=== PATIENT | female | born 1960 | race Caucasian/White ===

== ENCOUNTER 2020-02-28 13:50 | Outpatient (REF) | payer OTHER, SELFPAY ==
[2020-02-28 17:05] LABS: MANUAL DIFF FLAG NO
[2020-02-28 17:21] LABS: Basophils Absolute Auto 0.1 X10*3/uL (0.0-0.2); Basophils Percent Auto 0.6 % (0-2); Eosinophils Absolute Auto 0.1 X10*3/uL (0.0-0.4); Hematocrit 42.3 % (37-47); Hemoglobin 13.7 g/dl (12.0-16.0); Imm Gran Abs Auto 0.02 X10*3/uL (0.00-0.03); Imm Gran Pct Auto 0.2 % (0.0-0.4); Lymphocytes Absolute Auto 1.8 X10*3/uL (1.2-4.9); Lymphocytes Percent Auto 21.1 % (20-40); Mean Corpuscular HGB Conc 32.4 g/dl (31.0-35.0); Mean Corpuscular Hemoglobin 30.4 pg (27.0-33.0); Mean Corpuscular Volume 93.8 fL (80-98); Mean Platelet Volume 11.4 fL (9.4-12.3); Monocytes Absolute Auto 0.6 X10*3/uL (0.1-1.2); Monocytes Percent Auto 6.8 % (2-11); Neutrophils Absolute Auto 6.1 X10*3/uL (2.0-8.3); Neutrophils Percent Auto 70.3 % (45-73); Platelet Count 223 X10*3/uL (160-400); Red Blood Count 4.51 X10*6/uL (4.20-5.50); Red Cell Distribution Width 13.2 % (11.0-16.0); White Blood Count 8.7 X10*3/uL (4.8-10.8)
[2020-02-28 17:34] LABS: INTERNATIONAL NORM RATIO 0.9 (0.9-1.1); Prothrombin Time 11.2 SEC (10.8-13.0)
[2020-02-28 17:40] LABS: Alanine Aminotransferase 15 U/L (0-31); Aspartate Amino Transferase 24 U/L (5-31); Blood Urea Nitrogen 8 mg/dL (9-16); Estimated Glomerular Filt Rate > 60
== END 2020-02-28 13:51 | disposition home or self-care (01) ==
LOC: HO.HMGCLDS 13:50
PROVIDERS: PCP Internal Medicine; Visit Provider Internal Medicine Gastroenterology
DX: K74.3 Primary biliary cirrhosis (principal)
CPT/HCPCS: 36415; 82565; 84450; 84460; 84520; 85025; 85610

== ENCOUNTER → 2020-03-01 15:45 | Outpatient (BNVA) | payer OTHER, SELFPAY | PROVIDERS: PCP Internal Medicine; Referring Provider Internal Medicine; Visit Provider Internal Medicine Gastroenterology | DX: Z76.89 Persons encountering health services in other specified circumstances (principal) ==

== ENCOUNTER 2020-07-20 14:47 | Outpatient (REF) | payer OTHER, SELFPAY ==
[2020-07-20 16:16] LABS: MANUAL DIFF FLAG NO
[2020-07-20 16:25] LABS: Basophils Absolute Auto 0.1 X10*3/uL (0.0-0.2); Basophils Percent Auto 1.3 % (0-2); Eosinophils Absolute Auto 0.2 X10*3/uL (0.0-0.4); Eosinophils Percent Auto 3.8 % (0-4); Hematocrit 39.7 % (37-47); Hemoglobin 12.9 g/dl (12.0-16.0); Imm Gran Abs Auto 0.01 X10*3/uL (0.00-0.03); Imm Gran Pct Auto 0.2 % (0.0-0.4); Lymphocytes Absolute Auto 2.2 X10*3/uL (1.2-4.9); Lymphocytes Percent Auto 35.9 % (20-40); Mean Corpuscular HGB Conc 32.5 g/dl (31.0-35.0); Mean Corpuscular Hemoglobin 30.9 pg (27.0-33.0); Mean Platelet Volume 11.1 fL (9.4-12.3); Monocytes Absolute Auto 0.5 X10*3/uL (0.1-1.2); Monocytes Percent Auto 8.2 % (2-11); Neutrophils Percent Auto 50.6 % (45-73); Platelet Count 216 X10*3/uL (160-400); Red Blood Count 4.18 X10*6/uL (4.20-5.50); Red Cell Distribution Width 12.7 % (11.0-16.0)
[2020-07-20 16:55] LABS: Alanine Aminotransferase 11 U/L (0-31); Albumin Level 4.1 g/dL (3.5-5.0); Alkaline Phosphatase 164 U/L (39-117); Aspartate Amino Transferase 22 U/L (5-31); Bilirubin Direct 0.3 mg/dL (0.0-0.5); Bilirubin Total 0.7 mg/dL (0.0-1.0); C Reactive Protein 0.15 mg/dL (< or = 0.50); Gamma Glutamyl Transpeptidase 509 U/L (7-33); Total Protein 7.5 g/dL (6.5-8.0)
== END 2020-07-20 14:48 | disposition home or self-care (01) ==
LOC: HO.HMGCLDS 14:47
PROVIDERS: PCP Internal Medicine; Visit Provider Internal Medicine Gastroenterology
DX: K74.3 Primary biliary cirrhosis (principal)
CPT/HCPCS: 36415; 80076; 82977; 85025; 86140

== ENCOUNTER → 2020-07-23 14:44 | Outpatient (BNVA) | payer OTHER, SELFPAY | PROVIDERS: PCP Internal Medicine; Referring Provider Internal Medicine; Visit Provider Internal Medicine Gastroenterology ==

== ENCOUNTER 2020-11-13 10:34 | Outpatient (REF) | payer OTHER, SELFPAY ==
[2020-11-13 14:00] LABS: MANUAL DIFF FLAG NO
[2020-11-13 14:16] LABS: Basophils Percent Auto 0.6 % (0-2); Eosinophils Absolute Auto 0.1 X10*3/uL (0.0-0.4); Eosinophils Percent Auto 2.4 % (0-4); Hematocrit 37.6 % (37-47); Hemoglobin 12.1 g/dl (12.0-16.0); Imm Gran Abs Auto 0.01 X10*3/uL (0.00-0.03); Imm Gran Pct Auto 0.2 % (0.0-0.4); Lymphocytes Absolute Auto 1.8 X10*3/uL (1.2-4.9); Mean Corpuscular HGB Conc 32.2 g/dl (31.0-35.0); Mean Corpuscular Hemoglobin 31.4 pg (27.0-33.0); Mean Corpuscular Volume 97.7 fL (80-98); Mean Platelet Volume 11.2 fL (9.4-12.3); Monocytes Absolute Auto 0.4 X10*3/uL (0.1-1.2); Monocytes Percent Auto 7.5 % (2-11); Neutrophils Absolute Auto 2.7 X10*3/uL (2.0-8.3); Neutrophils Percent Auto 53.3 % (45-73); Platelet Count 200 X10*3/uL (160-400); Red Blood Count 3.85 X10*6/uL (4.20-5.50); Red Cell Distribution Width 13.2 % (11.0-16.0); White Blood Count 5.1 X10*3/uL (4.8-10.8)
[2020-11-13 14:20] LABS: INTERNATIONAL NORM RATIO 0.8 (0.9-1.1); Prothrombin Time 9.3 SEC (9.9-13.0)
[2020-11-13 14:52] LABS: Alanine Aminotransferase 14 U/L (0-31); Albumin Level 3.8 g/dL (3.5-5.0); Alkaline Phosphatase 166 U/L (39-117); Aspartate Amino Transferase 27 U/L (5-31); Bilirubin Direct 0.2 mg/dL (0.0-0.5); Bilirubin Total 0.6 mg/dL (0.0-1.0); Total Protein 6.9 g/dL (6.5-8.0)
[2020-11-13 15:07] LABS: Gamma Glutamyl Transpeptidase 468 U/L (7-33)
[2020-11-17 19:32] LABS: FIB-ALT 13 U/L (6-29); FIB-Alpha-2-Macroglobulin 139 mg/dL (106-279); FIB-Apolipoprotein A1 276 mg/dL (101-198); FIB-GGT 367 U/L (3-70); FIB-Haptoglobin 170 mg/dL (43-212); FIB-Total Bilirubin 0.4 mg/dL (0.2-1.2); Liver Fibrosis Score 0.06; Liver Fibrosis Stage F0; Nec Inflam Act Grade A0; Nec Inflam Act Score 0.03
== END 2020-11-13 10:35 | disposition home or self-care (01) ==
LOC: HO.HMGCLDS 10:34
PROVIDERS: PCP Internal Medicine; Visit Provider Internal Medicine Gastroenterology
DX: K74.3 Primary biliary cirrhosis (principal)
CPT/HCPCS: 36415; 80076; 81596; 82977; 85025; 85610

== ENCOUNTER 2021-10-22 14:19 | Outpatient (REF) | payer OTHER, SELFPAY ==
[2021-10-22 16:30] LABS: MANUAL DIFF FLAG NO
[2021-10-22 16:34] LABS: Basophils Absolute Auto 0.1 X10*3/uL (0.0-0.2); Basophils Percent Auto 0.9 % (0-2); Eosinophils Absolute Auto 0.3 X10*3/uL (0.0-0.4); Eosinophils Percent Auto 5.1 % (0-4); Hematocrit 42.1 % (37.0-47.0); Hemoglobin 13.4 g/dl (12.0-16.0); Imm Gran Abs Auto 0.01 X10*3/uL (0.00-0.03); Imm Gran Pct Auto 0.2 % (0.0-0.4); Lymphocytes Absolute Auto 2.5 X10*3/uL (1.2-4.9); Lymphocytes Percent Auto 39.1 % (20-40); Mean Corpuscular HGB Conc 31.8 g/dl (31.0-35.0); Mean Corpuscular Hemoglobin 30.5 pg (27.0-33.0); Mean Corpuscular Volume 95.9 fL (80.0-98.0); Mean Platelet Volume 11.3 fL (9.4-12.3); Monocytes Absolute Auto 0.6 X10*3/uL (0.1-1.2); Monocytes Percent Auto 8.7 % (2-11); Neutrophils Absolute Auto 2.9 x10*3/uL (2.0-8.3); Platelet Count 244 X10*3/uL (160-400); Red Blood Count 4.39 X10*6/uL (4.20-5.50); Red Cell Distribution Width 12.4 % (11.0-16.0); White Blood Count 6.3 X10*3/uL (4.8-10.8)
[2021-10-22 16:39] LABS: Prothrombin Time 11.6 SEC (9.9-13.0)
[2021-10-22 16:46] LABS: Alanine Aminotransferase 17 U/L (0-31); Albumin Level 4.1 g/dL (3.5-5.0); Alkaline Phosphatase 183 U/L (39-117); Aspartate Amino Transferase 23 U/L (5-31); Bilirubin Direct 0.2 mg/dL (0.0-0.5); Bilirubin Total 0.5 mg/dL (0.0-1.0); Gamma Glutamyl Transpeptidase 527 U/L (7-33); Total Protein 7.3 g/dL (6.5-8.0)
[2021-10-25 15:33] LABS: Anti Nuclear Antibody Screen POSITIVE (NEGATIVE)
== END 2021-10-22 14:20 | disposition home or self-care (01) ==
LOC: HO.HMGCLDS 14:19
PROVIDERS: PCP Internal Medicine; Visit Provider Internal Medicine Gastroenterology
DX: K74.3 Primary biliary cirrhosis (principal)
CPT/HCPCS: 36415; 80076; 82977; 85025; 85610; 86038; 86039

== ENCOUNTER 2021-12-02 11:03 | Outpatient (REF) | payer OTHER, SELFPAY ==
--- NOTE | ~2021-12-02 | US_ITS ---
EXAMINATION: US ABDOMEN COMPLETE CLINICAL INFORMATION: Primary biliary cirrhosis. COMPARISON: Ultrasound abdomen 02/14/2019 and 02/25/2012. CT abdomen and pelvis 01/14/2018. X-ray abdomen KUB 11/26/2017. TECHNIQUE: Real-time imaging of the abdominal viscera. FINDINGS: PANCREAS: Normal. ABDOMINAL AORTA: There are mild atherosclerotic changes of the abdominal aorta. INFERIOR VENA CAVA: Visualized portions are normal. LIVER: The liver is normal in size. The liver contour is normal. Parenchymal texture is coarse and echogenic. No focal hepatic lesion. There is no intrahepatic biliary duct dilatation seen. The portal veins are prominent with normal hepatopedal flow in the main portal vein. GALLBLADDER: There is a nonmobile echogenic 0.18 cm polyp. The gallbladder is physiologically distended without evidence of stones, sludge, wall thickening or pericholecystic fluid. COMMON BILE DUCT: Normal in caliber measuring 0.2 cm in diameter. RIGHT KIDNEY: Normal. No hydronephrosis. No renal calculi or focal parenchymal lesions. The kidney measures 10.3 cm in maximum dimension. LEFT KIDNEY: Normal. No hydronephrosis. No renal calculi or focal parenchymal lesions. The kidney measures 9.9 cm in maximum dimension. SPLEEN: Normal. The spleen measures 8.9 cm in maximum dimension. FREE FLUID: None. US/US abdomen complete IMPRESSION: Coarse echogenic liver without focal lesion. Small gallbladder polyp with no wall thickening or echogenic stones. Mild atherosclerotic changes of abdominal aorta.
== END 2021-12-02 11:04 | disposition home or self-care (01) ==
LOC: HO.HMGCX 11:03
PROVIDERS: Visit Provider Internal Medicine Gastroenterology
DX: K74.3 Primary biliary cirrhosis (principal)
CPT/HCPCS: 76700

== ENCOUNTER 2021-12-30 13:29 | Outpatient (REF) | payer OTHER, SELFPAY ==
--- NOTE | ~2021-12-30 | MM_ITS ---
EXAMINATION: MM SCREENING DIGITAL BREAST TOMOSYNTHESIS, BILATERAL CLINICAL INFORMATION: Screening. Asymptomatic. The lifetime risk of breast cancer based on the Tyrer-Cuzick Model is 7%. COMPARISON: Mammography: November 18, 2013 and studies dating back to December 07, 2007 TECHNIQUE: Digital breast tomosynthesis is performed in both the craniocaudal and mediolateral oblique views along with computer-aided detection (CAD). Synthesized 2D images are generated from the tomosynthesis. FINDINGS: There are scattered areas of fibroglandular density (ACR BI-RADS breast composition Category b). There are no significant masses, abnormal calcifications, or other abnormalities. MM/MM tomosynthesis screening BI IMPRESSION: No mammographic evidence of malignancy. ASSESSMENT: BI-RADS 1: Negative RECOMMENDATION: Routine annual mammography screening. This patient's information was entered into a reminder system with a target due date for their next mammogram.
== END 2021-12-30 13:30 | disposition home or self-care (01) ==
LOC: HO.MAMMO 13:29
PROVIDERS: PCP Internal Medicine; Visit Provider Internal Medicine
DX: Z12.31 Encounter for screening mammogram for malignant neoplasm of breast (principal)
CPT/HCPCS: 77063; 77067

== ENCOUNTER 2022-01-27 10:10 | Outpatient (REF) | payer OTHER, SELFPAY ==
[2022-01-27 12:55] LABS: HBsAGNum1 0.38 S/CO (0.00-0.99); Hepatitis B Surface Antigen Negative (Negative)
[2022-01-27 13:01] LABS: Alanine Aminotransferase 12 U/L (0-31); Albumin Level 3.8 g/dL (3.5-5.0); Alkaline Phosphatase 161 U/L (39-117); Aspartate Amino Transferase 20 U/L (5-31); Bilirubin Direct 0.2 mg/dL (0.0-0.5); Bilirubin Total 0.3 mg/dL (0.0-1.0); Total Protein 6.9 g/dL (6.5-8.0)
[2022-01-27 13:21] LABS: Vitamin D 25-OH Total 44.6 ng/mL (>30)
[2022-01-30 17:52] LABS: Vitamin A 85 mcg/dL (38-98)
== END 2022-01-27 10:11 | disposition home or self-care (01) ==
LOC: HO.HMGCLDS 10:10
PROVIDERS: PCP Internal Medicine; Visit Provider Internal Medicine Gastroenterology
DX: K74.3 Primary biliary cirrhosis (principal)
CPT/HCPCS: 36415; 80076; 82306; 84590; 87340

== ENCOUNTER 2022-06-12 14:00 | Outpatient (REF) | payer OTHER, SELFPAY ==
[2022-06-12 16:34] LABS: Hematocrit 42.8 % (37.0-47.0); Hemoglobin 13.9 g/dl (12.0-16.0); Mean Corpuscular HGB Conc 32.5 g/dl (31.0-35.0); Mean Corpuscular Hemoglobin 30.8 pg (27.0-33.0); Mean Corpuscular Volume 94.9 fL (80.0-98.0); Mean Platelet Volume 10.8 fL (9.4-12.3); Platelet Count 244 X10*3/uL (160-400); Red Blood Count 4.51 X10*6/uL (4.20-5.50); Red Cell Distribution Width 12.7 % (11.0-16.0); White Blood Count 6.1 X10*3/uL (4.8-10.8)
[2022-06-12 16:40] LABS: INTERNATIONAL NORM RATIO 0.9 (0.9-1.1); Prothrombin Time 10.3 SEC (10.0-13.1)
[2022-06-12 17:04] LABS: Alanine Aminotransferase 13 U/L (0-31); Alkaline Phosphatase 156 U/L (39-117); Anion Gap 11 (12-20); Aspartate Amino Transferase 22 U/L (5-31); Bilirubin Total 0.9 mg/dL (0.0-1.0); Blood Urea Nitrogen 11 mg/dL (9-16); C Reactive Protein 0.36 mg/dL (< or = 0.50); Calcium 9.2 mg/dL (8.4-10.2); Carbon Dioxide 29 mmol/L (22-29); Chloride 106 mmol/L (96-108); Cholesterol 244 mg/dL; Estimated Glomerular Filt Rate > 60; Gamma Glutamyl Transpeptidase 382 U/L (7-33); Glucose Random 81 mg/dL (60-115); HDL Cholesterol 85 mg/dL; LDL Cholesterol Calculated 135 mg/dl; Potassium 4.1 mmol/L (3.3-5.1); Sodium 142 mmol/L (135-145); Total Protein 7.1 g/dL (6.5-8.0); Triglycerides 123 mg/dL
[2022-06-12 17:34] LABS: Folate 15.9 ng/mL (> or = 4.0); TSH reflex Free T4 3.29 uIU/mL (0.32-4.0); Vitamin B12 177 pg/mL (200-900)
[2022-06-12 17:44] LABS: Reflex LDLD? No
== END 2022-06-12 14:01 | disposition home or self-care (01) ==
LOC: HO.HMGCLDS 14:00
PROVIDERS: PCP Internal Medicine; Visit Provider Internal Medicine Gastroenterology
DX: K74.3 Primary biliary cirrhosis (principal)
CPT/HCPCS: 36415; 80053; 80061; 82607; 82746; 82977; 84443; 85027; 85610; 86140

== ENCOUNTER 2022-12-26 13:24 | Outpatient (REF) | payer OTHER, SELFPAY ==
[2022-12-26 16:18] LABS: Hematocrit 41.3 % (37.0-47.0); Hemoglobin 13.3 g/dl (12.0-16.0); Mean Corpuscular HGB Conc 32.2 g/dl (31.0-35.0); Mean Corpuscular Hemoglobin 30.8 pg (27.0-33.0); Mean Corpuscular Volume 95.6 fL (80.0-98.0); Mean Platelet Volume 11.4 fL (9.4-12.3); Platelet Count 239 X10*3/uL (160-400); Red Blood Count 4.32 X10*6/uL (4.20-5.50); Red Cell Distribution Width 13.1 % (11.0-16.0); White Blood Count 6.2 X10*3/uL (4.8-10.8)
[2022-12-26 17:02] LABS: Alanine Aminotransferase 12 U/L (0-31); Alkaline Phosphatase 153 U/L (39-117); Aspartate Amino Transferase 24 U/L (5-31); Bilirubin Direct 0.3 mg/dL (0.0-0.5); Bilirubin Total 0.6 mg/dL (0.0-1.0); Total Protein 7.6 g/dL (6.5-8.0)
[2022-12-26 17:18] LABS: Gamma Glutamyl Transpeptidase 503 U/L (7-33)
== END 2022-12-26 13:25 | disposition home or self-care (01) ==
LOC: HO.HMGCLDS 13:24
PROVIDERS: Visit Provider Internal Medicine Gastroenterology
DX: K74.3 Primary biliary cirrhosis (principal)
CPT/HCPCS: 36415; 80076; 82977; 85027

== ENCOUNTER 2023-01-08 10:57 | Outpatient (AMB) | payer OTHER, SELFPAY ==
--- NOTE | 2023-01-08 11:00 | MHC.OFFVIS ---
Intake Vital Signs 01/08/23 11:03 Height 5 ft 3 in Weight 101 lb BMI 17.9 BP 149/92 H Blood Pressure Location Lt brachial Position Sitting Pulse 87 Intake Visit Reasons: Labs Intake Note: Patient follow up for chronic constipation lab results. Patient cc: abdominal pain/bloating come and go, and between diarrhea and constipation. Denies any other GI issues. Event Coordinator Required: No Accompanied by: Self / Same As Patient Allergies Iodinated Contrast Media [IV CONTRAST] Allergy (Mild, Verified 01/08/23 10:59) HIVES Medication List - Last Reconciled 01/08/23 by Lizabeth Molina MD bisacodyl (Dulcolax (bisacodyl)) 10 mg (2 x 5 mg) PO ONCE 2 days calcium carbonate-vitamin D3 500 mg-5 mcg (200 unit) (Oysco 500/D) 1 tab PO DAILY 90 days docusate sodium (DOK) 100 mg PO DAILY PRN 30 days famotidine 20 mg PO BEDTIME 90 days ibuprofen (Advil) 200 mg PO Q6H PRN multivitamin 1 tab PO DAILY obeticholic acid (Ocaliva) 5 mg PO DAILY 30 days polyethylene glycol 3350 (Miralax) 17 grams PO DAILY 1 day ursodiol 375 mg (1.5 x 250 mg) PO BID HPI Labs HPI Details GI Clinic visit for this 62-year-old female for FU of? primary biliary cholangitis (PBC), GERD and constipation. ?? Pt was diagnosed with PBC in 07/[address] Whitlock: ? The most outstanding abnormalities that persist are an Alkaline Phosphatase of 563 with a GGTP of 1338. AST/ALT: 38/31. The Antimitochondrial Antibody is elevated to 1:320. The Antismooth Antibody is elevated at 89. These results are highly suggestive of PRIMARY BILIARY CIRRHOSIS, patient is in the correct age range, etc. for this diagnosis. I tried to explain to her that this is an autoimmune disorder in which the patient's own system starts attacking the bile ductules. Alcohol, although it doesn't cause the problem, escalates any damage/ inflamatory reaction that is ongoing. This does mean she has to stop drinking. The diagnosis is best made with a liver biopsy which we will set up . ? 07/2012 Liver Biopsy showed: ? LIVER, CORE NEEDLE BIOPSY: INFLAMMATORY PROCESS WITH FEATURES CONSISTENT WITH PRIMARY BILIARY CIRRHOSIS (PBC). ?CHRONIC ILLNESSES:?GERD, IBS, PRIMARY BILIARY CIRRHOSIS (Dx'd 07/21), LBx 07/2012 Stage 1-2/ 4. Mild portal fibrosis present, Smoker 1 ppd > 30 yrs (no lung imaging on file), Underweight,? ? ? Unintentional wt loss, H/O ETOH abuse, diverticulosis (05/23), Primary biliary cirrhosis ?LABS IN [place]: Reviewed. 10/12/19 normal CBC with platelet count 197, decreased in AP to 164 (from 206) with normal remaining LFTs (increased from 199 in 06/29). ? Hepatitis a serologies showed immunity to hepatitis A and lack of immunity to hepatitis-B. ? Normal CBC with plt count of 229. 04/27 AMA POSITIVE WITH A TITRE OF 1:320. ASMA POSITIVE AT 49 ? IMAGING STUDIES:? 12/02/21 ABD US SHOWED: Coarse echogenic liver without focal lesion. ?Small gallbladder polyp with no wall thickening or echogenic stones. ?Mild atherosclerotic changes of abdominal aorta. ?02/14/19 ABDOMINAL ULTRASOUND SHOWED: ? There is generalized increase in hepatic echotexture, consistent with ? fatty infiltration or hepatocellular disease. Please correlate ? clinically. No focal hepatic mass or intrahepatic biliary dilatation is seen. ?02/11/19 bone density study showed: ? IMPRESSION: ? 1. DIAGNOSIS: Osteoporosis based on the lowest T-score value of -4.9 ? in the lumbar spine applying World Health Organization criteria. ? 2. 10-YEAR FRACTURE RISK PREDICTION, FRAX: Major osteoporotic fracture ? (clinical spine, forearm, hip or shoulder) 28.1%. Hip fracture 20.3%. ENDOSCOPIC STUDIES: May, 2012 colonoscopy was performed by Dr. Whitlock and showed left-sided diverticulosis and no polyps . ?TODAY'S VISIT in Sep, 2022 at [facility] from complications of ETOH related cirrhosis. Remodeling her 2 family house (given to them by her brother in law for free). Has a daughter and a son. Applying for [employer] and cancelling her [facility] insurance. Had to cancel her colonoscopy appt and would like to reschedule at the time of her next appt Has constipation alternating with diarrhea - has multiple loose BMs throughout the day and never feels empty Feels bloated and gasy on some days. Advised to take Senna 1-2 times a week. Pt has had surgeries x 4 for complications associated with diverticulitis with abscess PAST VISIT: Advised to continue Patricia and Doing Ok.? Notes? intermittent heartburn - associated with certain foods Takes Angela prn for constipation Cheese can make her constipated. Continues to drink - takes 1-2 shots with ice cubes 2-3 times a week (sips on it). ? Lab and US results reviewed - showed a decrease in AP from the past. ? Drinking alcohol (peppermint kelsy) three times a day and finds it relaxing. ? Stopped drinking ETOH and heartburn has improved - taking famotidine once a day. ? Abdomen is still sensitive from past surgeries and tender in some places. ? Notes intermittent sharp pains in her abdomen lasting for few seconds since her abdominal surgeries ? associated with bending and moving. 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 ? Cant make it through the day without taking a nap. ? Has fatigue and anxiety all the time. ? Denies change in appetite or weight - weight is back to base line. ? BM are regular. ? Gets a little constipated once in a while and took colace in the past. ? Has had 3 colonoscopies in the past since age 51 -last colonoscopy was in May, 2012 and showed left-sided diverticulos [facility] Medical History (Updated 01/08/23 @ 11:26 by Lizabeth Molina MD) Osteoporosis Osteoporosis without pathological fracture Chronic constipation Tobacco use History of ETOH abuse Diverticulosis Primary biliary cholangitis Surgical History History of colectomy History of liver biopsy Hx of colonoscopy (~07/2012) Hx of hand surgery Family History Father Anxiety Mother Diabetes mellitus Sister Breast cancer Social History Household Members: Spouse Housing: House Alcohol intake: current Alcohol intake frequency: a few times a week Alcohol type: hard liquor Patient Tobacco Use Status: Current everyday Tobacco user Cigarettes Per Day: 10 e-Cigarette/Vaping Use: Never Used Substance Use Type: Marijuana Current occupational status: employed Current occupation: [employer] Cognitive needs: No Hearing needs: No Vision needs: No Review of Systems Const All systems reviewed & are unremarkable except as noted in HPI and below Physical Exam Vital Signs: Last Vital Signs Pulse 87 01/08/23 11:03 BP 149/92 H 01/08/23 11:03 BMI result Body Mass Index 17.9 Const General: healthy appearing and no acute distress Nutritional Appearance: underweight Orientation/consciousness: patient oriented x3 Limitations: no limitations HEENT Head: Yes normal to inspection Ears: hearing grossly normal bilaterally Eyes Sclerae: sclerae normal Pupils: Equal, round and reactive pupils present Neck Neck: Yes normal visual inspection Chest Chest palpation & inspection: normal inspection of the chest Resp Effort & Inspection: normal respiratory effort Auscultation: clear to auscultation bilaterally Cardio Palpation: normal PMI Rate: regular rate Rhythm: regular rhythm Heart sounds: S1 normal heart sound present, S2 normal heart sound present and no murmurs GI Inspection: Yes scar (midline scare of past abdominal surgeries) Palpation (GI): Soft to palpation, nontender and No hepatosplenomegaly present Auscultation: normal bowel sounds Rectal Exam - Female: deferred Skin General skin exam: no rashes or lesions noted Neuro General: patient oriented x3, gait normal and moves all extremities Cranial nerves: Yes Equal, round and reactive pupils present Psych Appearance: grossly normal Mental Status: mental status grossly normal Assessment & Plan Assessment & Plan (1) Colon cancer screening: Comment: had 3 colonoscopies in the past since age 51 -last colonoscopy was in 2018. 10/26 patient had an incomplete colonoscopy to the hepatic flexure by Dr. Syed prior to ileostomy takedown. Pt will be scheduled for FU colonoscopy in 2022. Code(s): Z12.11 - Encounter for screening for malignant neoplasm of colon (2) Chronic constipation: Code(s): K59.09 - Other constipation (3) Primary biliary cholangitis: Comment: primary biliary cholangitis (Dx'd 07/21), LBx 07/2012 Stage 1-2/ 4. Mild portal fibrosis present, Continue Ursodiol 250 mg 1.5 tablets twice daily 10/2021 Obeticholic acid (Ocaliva) 5 mg daily added due to elevated AP and GGT Code(s): K74.3 - Primary biliary cirrhosis (4) History of ETOH abuse: Code(s): F10.11 - Alcohol abuse, in remission (5) Gallbladder polyp: Code(s): K82.4 - Cholesterolosis of gallbladder Plan 62 YF with GERD, IBS,? primary biliary cholangitis (Dx'd 07/21), LBx 07/2012 Stage 1-2/ 4. Mild portal fibrosis present, Smoker 1 ppd > 30 yrs, Underweight, Unintentional wt loss , H/O ETOH abuse, diverticulosis (05/23) seen for follow-up of PBC. Labs revealed improvement in LFTs - transaminases are normal and AP and GGT are stable. 04/2018 Liver Fibrosis score of 0,10 and Liver Fibrosis Stage of F0. Increase in LFTs (GGT and AP likely due to ongoing ETOH use). Bone density study showed osteoporosis - patient was referred to Dr. Ericka Eng (her PCP) for management and is taking Ca + Vitamin D daily. Pt was advised to quit drinking with improvement in AP to 164 and decrease in GGT to 333 (from 569) She notes improvement and heartburn is taking famotidine once daily. Patient was advised to abstain completely from EtOH except for occasional intake of wine on social occasions and continues to drink 2 shots 2-3 times a week and will try to cut back 10/2021 Due to worsening GGT and AP, Obeticholic acid 5 mg daily was added for PBC. Repeat labs in 3 months.? If LFTs do not improve in 3 months, dose of Obeticholic acid will be increased to 10 mg daily 01/08/23 PI due for Colon appt in spring Had to cancel her colonoscopy appt and would like to reschedule at the time of her next appt Has constipation alternating with diarrhea - has multiple loose BMs throughout the day and never feels empty Feels bloated and gassy on some days. Advised to take Senna 1-2 times a week. FU appt in 6 months. Orders: Orders US abdomen limited 01/08/23 K74.3 - Primary biliary cirrhosis, K82.4 - Cholesterolosis of gallbladder Medications: New mecobalamin (vitamin B12) place tablet under tongue and allow to dissolve for at least30 secs before swallowing 1,000 mcg sublingual DAILY 90 tabs 0RF 90 days sennosides-docusate sodium 8.6-50 mg (Senna Plus) 1 tab-cap PO .twice a week 60 caps 1RF 60 days K59.09 - Other constipation Coding Level of Care Code Est Pt Level 4 (46189) Diagnoses Colon cancer screening Z12.11 Chronic constipation K59.09 Primary biliary cholangitis K74.3 History of ETOH abuse F10.11 Gallbladder polyp K82.4 Time Spent (min) 22
[2023-01-08 11:03] VITALS: BP 149/92; PULSE 87; BMI 17.9
== END 2023-01-08 11:56 | disposition home or self-care (01) ==
PROVIDERS: PCP Internal Medicine; Visit Provider Internal Medicine Gastroenterology
DX: Z12.11 Encounter for screening for malignant neoplasm of colon (principal); K59.09 Other constipation; K74.3 Primary biliary cirrhosis; F10.11 Alcohol abuse, in remission; K82.4 Cholesterolosis of gallbladder; Z01.818 Encounter for other preprocedural examination
CPT/HCPCS: 99214

== ENCOUNTER → 2023-01-08 10:57 | Outpatient (BNVA) | payer OTHER, SELFPAY | PROVIDERS: PCP Internal Medicine; Visit Provider Internal Medicine Gastroenterology ==

== ENCOUNTER 2023-07-01 10:29 | Outpatient (REF) | payer MEDICAID, SELFPAY ==
--- NOTE | ~2023-07-01 | US_ITS ---
EXAMINATION: US ABDOMEN LIMITED CLINICAL INFORMATION: Primary biliary cirrhosis. Followup of gallbladder polyp. COMPARISON: Ultrasound abdomen complete 12/02/2021 and 02/14/2019. X-ray abdomen KUB 11/26/2017 and 07/23/2017. CT abdomen and pelvis without contrast 01/14/2018. TECHNIQUE: Real-time imaging of the right upper quadrant abdominal viscera. FINDINGS: PANCREAS: Normal. LIVER: The liver is normal in size. The liver contour is normal. There is coarse, increased liver parenchymal echogenicity. No focal hepatic lesion. There is no intrahepatic biliary duct dilatation seen. GALLBLADDER: A 1 mm nonmobile polyp is seen. The gallbladder is mildly contracted, without without evidence of stones, sludge, wall thickening or pericholecystic fluid. COMMON BILE DUCT: Normal in caliber measuring 0.3 cm in diameter. RIGHT KIDNEY: Normal. No hydronephrosis. No renal calculi or focal parenchymal lesions. The kidney measures 9.9 cm in maximum dimension. FREE FLUID: None. US/US abdomen limited IMPRESSION: 1. There is coarse, increased hepatic echotexture, consistent with fatty infiltration or hepatocellular disease. Please correlate clinically. No focal hepatic mass or intrahepatic biliary dilatation is seen. 2. A 1 mm nonmobile gallbladder polyp is seen.
[2023-07-01 13:19] LABS: MANUAL DIFF FLAG NO
[2023-07-01 13:35] LABS: Basophils Percent Auto 0.7 % (0-2); Eosinophils Absolute Auto 0.3 X10*3/uL (0.0-0.4); Eosinophils Percent Auto 4.6 % (0-4); Hematocrit 45.1 % (37.0-47.0); Hemoglobin 14.4 g/dl (12.0-16.0); Imm Gran Abs Auto 0.01 X10*3/uL (0.00-0.03); Imm Gran Pct Auto 0.2 % (0.0-0.4); Lymphocytes Absolute Auto 2.2 X10*3/uL (1.2-4.9); Lymphocytes Percent Auto 38.8 % (20-40); Mean Corpuscular HGB Conc 31.9 g/dl (31.0-35.0); Mean Corpuscular Hemoglobin 30.8 pg (27.0-33.0); Mean Corpuscular Volume 96.6 fL (80.0-98.0); Mean Platelet Volume 11.3 fL (9.4-12.3); Monocytes Absolute Auto 0.4 X10*3/uL (0.1-1.2); Monocytes Percent Auto 6.7 % (2-11); Neutrophils Absolute Auto 2.8 x10*3/uL (2.0-8.3); Platelet Count 226 X10*3/uL (160-400); Red Blood Count 4.67 X10*6/uL (4.20-5.50); Red Cell Distribution Width 12.8 % (11.0-16.0); White Blood Count 5.7 X10*3/uL (4.8-10.8)
[2023-07-01 13:41] LABS: INTERNATIONAL NORM RATIO 0.8 (0.9-1.1); Prothrombin Time 9.5 SEC (11.1-13.3)
[2023-07-01 14:11] LABS: Alanine Aminotransferase 16 U/L (0-31); Albumin Level 3.9 g/dL (3.5-5.0); Alkaline Phosphatase 173 U/L (39-117); Aspartate Amino Transferase 27 U/L (5-31); Bilirubin Direct 0.2 mg/dL (0.0-0.5); Bilirubin Total 0.3 mg/dL (0.0-1.0); Total Protein 7.3 g/dL (6.5-8.0)
[2023-07-01 14:12] LABS: Vitamin B12 222 pg/mL (200-900)
[2023-07-01 14:20] LABS: TSH reflex Free T4 5.77 uIU/mL (0.32-4.0); Vitamin D 25-OH Total 47.5 ng/mL (>30)
[2023-07-01 15:52] LABS: Free T4 (Free Thyroxine) 0.85 ng/dL (0.71-1.85)
[2023-07-04 06:28] LABS: Vitamin A 68 mcg/dL (38-98)
== END 2023-07-01 10:30 | disposition home or self-care (01) ==
LOC: HO.HMGCX 10:29
PROVIDERS: PCP Internal Medicine; Visit Provider Internal Medicine Gastroenterology
DX: K74.3 Primary biliary cirrhosis (principal); K82.4 Cholesterolosis of gallbladder
CPT/HCPCS: 36415; 76705; 80076; 82306; 82607; 84439; 84443; 84590; 85025; 85610

== ENCOUNTER 2023-07-09 11:49 | Outpatient (AMB) | payer MEDICAID, SELFPAY ==
--- NOTE | 2023-07-09 12:09 | MHC.OFFVIS ---
Intake Vital Signs 07/09/23 12:12 Height 5 ft 3 in Weight 106 lb 6 oz BMI 18.8 BP 122/69 Blood Pressure Location Lt brachial Position Sitting Pulse 84 Intake Visit Reasons: 6 month follow up Intake Note: Patient follow up for Constipation, lab and US results. Patient denies any GI issues for today. 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 Accompanied by: Self / Same As Patient Allergies Iodinated Contrast Media [IV CONTRAST] Allergy (Mild, Verified 07/09/23 12:11) HIVES Medication List - Last Reconciled 07/09/23 by Lizabeth Molina MD bisacodyl (Dulcolax (bisacodyl)) 10 mg (2 x 5 mg) PO ONCE 2 days calcium carbonate-vitamin D3 500 mg-5 mcg (200 unit) (Oysco 500/D) 1 tab PO DAILY 90 days docusate sodium 100 mg PO DAILY PRN famotidine 20 mg PO BEDTIME 90 days ibuprofen (Advil) 200 mg PO Q6H PRN mecobalamin (vitamin B12) 1,000 mcg sublingual DAILY 90 days multivitamin 1 tab PO DAILY obeticholic acid (Ocaliva) 5 mg PO DAILY 30 days sennosides-docusate sodium 8.6-50 mg (Senna Plus) 1 tab-cap PO .twice a week 60 days ursodiol 375 mg (1.5 x 250 mg) PO BID HPI 6 month follow up HPI Details GI Clinic visit for this 62-year-old female for FU of? primary biliary cholangitis (PBC), GERD and constipation. ?? Pt was diagnosed with PBC in 07/[address] Whitlock: ? The most outstanding abnormalities that persist are an Alkaline Phosphatase of 563 with a GGTP of 1338. AST/ALT: 38/31. The Antimitochondrial Antibody is elevated to 1:320. The Antismooth Antibody is elevated at 89. These results are highly suggestive of PRIMARY BILIARY CIRRHOSIS, patient is in the correct age range, etc. for this diagnosis. I tried to explain to her that this is an autoimmune disorder in which the patient's own system starts attacking the bile ductules. Alcohol, although it doesn't cause the problem, escalates any damage/ inflamatory reaction that is ongoing. This does mean she has to stop drinking. The diagnosis is best made with a liver biopsy which we will set up . ? 07/2012 Liver Biopsy showed: ? LIVER, CORE NEEDLE BIOPSY: INFLAMMATORY PROCESS WITH FEATURES CONSISTENT WITH PRIMARY BILIARY CIRRHOSIS (PBC). ?CHRONIC ILLNESSES:?GERD, IBS, PRIMARY BILIARY CIRRHOSIS (Dx'd 07/21), LBx 07/2012 Stage 1-2/ 4. Mild portal fibrosis present, Smoker 1 ppd > 30 yrs (no lung imaging on file), Underweight,? ? ? Unintentional wt loss, H/O ETOH abuse, diverticulosis (05/23), Primary biliary cirrhosis ?LABS IN [employer]: Reviewed. 10/12/19 normal CBC with platelet count 197, decreased in AP to 164 (from 206) with normal remaining LFTs (increased from 199 in 06/29). ? Hepatitis a serologies showed immunity to hepatitis A and lack of immunity to hepatitis-B. ? Normal CBC with plt count of 229. 04/27 AMA POSITIVE WITH A TITRE OF 1:320. ASMA POSITIVE AT 49 ? IMAGING STUDIES:?07/01/23 ABD US SHOWED: 1. There is coarse, increased hepatic echotexture, consistent with fatty infiltration or hepatocellular disease. Please correlate clinically. No focal hepatic mass or intrahepatic biliary dilatation is seen. 2. A 1 mm nonmobile gallbladder polyp is seen. 12/02/21 ABD US SHOWED: Coarse echogenic liver without focal lesion. ?Small gallbladder polyp with no wall thickening or echogenic stones. ?Mild atherosclerotic changes of abdominal aorta. ?02/14/19 ABDOMINAL ULTRASOUND SHOWED: ? There is generalized increase in hepatic echotexture, consistent with ? fatty infiltration or hepatocellular disease. Please correlate ? clinically. No focal hepatic mass or intrahepatic biliary dilatation is seen. ?02/11/19 bone density study showed: ? IMPRESSION: ? 1. DIAGNOSIS: Osteoporosis based on the lowest T-score value of -4.9 ? in the lumbar spine applying World Health Organization criteria. ? 2. 10-YEAR FRACTURE RISK PREDICTION, FRAX: Major osteoporotic fracture ? (clinical spine, forearm, hip or shoulder) 28.1%. Hip fracture 20.3%. ENDOSCOPIC STUDIES: May, 2012 colonoscopy was performed by Dr. Whitlock and showed left-sided diverticulosis and no polyps TODAY'S VISIT Patient denies any GI issues for today. Postponed her colonoscopy since she was waiting for a new insurance. Ready to schedule her colonoscopy since she has [email or web address] ([email or web address]) PAST VISIT: in Sep, 2022 at [facility] from complications of ETOH related cirrhosis. Remodeling her 2 family house (given to them by her brother in law for free). Has a daughter and a son. Applying for [email or web address] and cancelling her [employer] insurance. Had to cancel her colonoscopy appt and would like to reschedule at the time of her next appt Has constipation alternating with diarrhea - has multiple loose BMs throughout the day and never feels empty Feels bloated and gasy on some days. Advised to take Senna 1-2 times a week. Pt has had surgeries x 4 for complications associated with diverticulitis with abscess Advised to continue Patricia and Doing Ok.? Notes? intermittent heartburn - associated with certain foods Takes Angela prn for constipation Cheese can make her constipated. Continues to drink - takes 1-2 shots with ice cubes 2-3 times a week (sips on it). ? Lab and US results reviewed - showed a decrease in AP from the past. ? Drinking alcohol (peppermint kelsy) three times a day and finds it relaxing. ? Stopped drinking ETOH and heartburn has improved - taking famotidine once a day. ? Abdomen is still sensitive from past surgeries and tender in some places. ? Notes intermittent sharp pains in her abdomen lasting for few seconds since her abdominal surgeries ? associated with bending and moving. 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 ? Cant make it through the day without taking a nap. ? Has fatigue and anxiety all the time. ? Denies change in appetite or weight - weight is back to base line. ? BM are regular. ? Gets a little constipated once in a while and took colace in the past. ? Has had 3 colonoscopies in the past since age 51 -last colonoscopy was in May, 2012 and showed left-sided diverticulosis [facility] Medical History (Updated 01/08/23 @ 11:26 by Lizabeth Molina MD) Osteoporosis Osteoporosis without pathological fracture Chronic constipation Tobacco use History of ETOH abuse Diverticulosis Primary biliary cholangitis Surgical History Hx of hand surgery History of colectomy History of liver biopsy Hx of colonoscopy (~07/2012) Family History Father Anxiety Mother Diabetes mellitus Sister Breast cancer Social History Household Members: Spouse Housing: House Alcohol intake: current Alcohol intake frequency: a few times a week Alcohol type: hard liquor Patient Tobacco Use Status: Current everyday Tobacco user Cigarettes Per Day: 10 e-Cigarette/Vaping Use: Never Used Substance Use Type: Marijuana Current occupational status: employed 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 Cognitive needs: No Hearing needs: No Vision needs: No Review of Systems Const All systems reviewed & are unremarkable except as noted in HPI and below Physical Exam Vital Signs: Last Vital Signs Pulse 84 07/09/23 12:12 BP 122/69 07/09/23 12:12 BMI result Body Mass Index 18.8 Const General: healthy appearing and no acute distress Nutritional Appearance: underweight Orientation/consciousness: patient oriented x3 Limitations: no limitations HEENT Head: Yes normal to inspection Ears: hearing grossly normal bilaterally Eyes Sclerae: sclerae normal Pupils: Equal, round and reactive pupils present Neck Neck: Yes normal visual inspection Chest Chest palpation & inspection: normal inspection of the chest Resp Effort & Inspection: normal respiratory effort Auscultation: clear to auscultation bilaterally Cardio Palpation: normal PMI Rate: regular rate Rhythm: regular rhythm Heart sounds: S1 normal heart sound present, S2 normal heart sound present and no murmurs GI Inspection: Yes scar (midline scare of past abdominal surgeries) Palpation (GI): Soft to palpation, nontender and No hepatosplenomegaly present Auscultation: normal bowel sounds Rectal Exam - Female: deferred Skin General skin exam: no rashes or lesions noted Neuro General: patient oriented x3, gait normal and moves all extremities Cranial nerves: Yes Equal, round and reactive pupils present Psych Appearance: grossly normal Mental Status: mental status grossly normal Assessment & Plan Assessment & Plan (1) Colon cancer screening: Comment: had 3 colonoscopies in the past since age 51 -last colonoscopy was in 2018. 10/26 patient had an incomplete colonoscopy to the hepatic flexure by Dr. Syed prior to ileostomy takedown. Pt will be scheduled for FU colonoscopy in 2022. Code(s): Z12.11 - Encounter for screening for malignant neoplasm of colon (2) Gallbladder polyp: Code(s): K82.4 - Cholesterolosis of gallbladder (3) Primary biliary cholangitis: Comment: primary biliary cholangitis (Dx'd 07/21), LBx 07/2012 Stage 1-2/ 4. Mild portal fibrosis present, Continue Ursodiol 250 mg 1.5 tablets twice daily 10/2021 Obeticholic acid (Ocaliva) 5 mg daily added due to elevated AP and GGT Code(s): K74.3 - Primary biliary cirrhosis Plan 62 YF with GERD, IBS,? primary biliary cholangitis (Dx'd 07/21), LBx 07/2012 Stage 1-2/ 4. Mild portal fibrosis present, Smoker 1 ppd > 30 yrs, Underweight, Unintentional wt loss , H/O ETOH abuse, diverticulosis (05/23) seen for follow-up of PBC. Labs revealed improvement in LFTs - transaminases are normal and AP and GGT are stable. 04/2018 Liver Fibrosis score of 0,10 and Liver Fibrosis Stage of F0. Increase in LFTs (GGT and AP likely due to ongoing ETOH use). Bone density study showed osteoporosis - patient was referred to Dr. Ericka Eng (her PCP) for management and is taking Ca + Vitamin D daily. Pt was advised to quit drinking with improvement in AP to 164 and decrease in GGT to 333 (from 569) She notes improvement and heartburn is taking famotidine once daily. Patient was advised to abstain completely from EtOH except for occasional intake of wine on social occasions and continues to drink 2 shots 2-3 times a week and will try to cut back 10/2021 Due to worsening GGT and AP, Obeticholic acid 5 mg daily was added for PBC. Repeat labs in 3 months.? If LFTs do not improve in 3 months, dose of Obeticholic acid will be increased to 10 mg daily 01/08/23 PI due for Colon appt in spring Had to cancel her colonoscopy appt and would like to reschedule at the time of her next appt Has constipation alternating with diarrhea - has multiple loose BMs throughout the day and never feels empty Feels bloated and gassy on some days. Advised to take Senna 1-2 times a week. Lab and US results reviewed with the patient during her clinic visit. Pt has a slightly elevated TSH with normal T4. Forwarding to Dr Eng, pt's PCP to see if she would advise Fu versus treatment. From Uptodate Controversy exists as to whether patients with serum TSH values between 5 and 10 mU/L with normal free T4 levels (subclinical hypothyroidism) require treatment. If age-adjusted normal ranges for TSH were employed, 60 percent of women diagnosed with subclinical hypothyroidism would be considered euthyroid . 07/09/23 Ready to schedule her colonoscopy since she has [employer]) - scheduled on 12/21/23 FU appt in 6 months. Medications: New bisacodyl (Dulcolax (bisacodyl)) Take 2 tablets at 12 pm daily starting 2 days before colonoscopy appointment 10 mg (2 x 5 mg) PO ONCE 4 tabs 0RF colon prep 2 days polyethylene glycol 3350 (Miralax) Mix Miralax with 64 oz(8 cups) of Crystal light. Take 2 tablets of Dulcolax qt 12 pm. Wait to have your 1st bowel movement, then begin drinking Miralax. Drink a glass of Miralax every 10-15 minutes until you are finished. You will drink at least another 4 cups of clear liquid of your choice over the next 2 hours. Please drink as many clear liquids as possible You may have clear liquids up to four hours before your procedure 17 grams PO DAILY 238 grams 0RF colon prep 1 day simethicone (Gas-X Extra Strength) 125 mg PO BID-QID 30 days PRN 30 caps 3RF abdominal distention Changed From docusate sodium 100 mg PO DAILY PRN 30 caps 0RF for chronic pain K59.09 - Other constipation To docusate sodium 100 mg PO DAILY 90 days PRN 90 caps 1RF for chronic constipation K59.09 - Other constipation Refilled ursodiol 375 mg (1.5 x 250 mg) PO BID 270 tabs 3RF K74.3 - Primary biliary cirrhosis Coding Level of Care Code Est Pt Level 4 (40959) Diagnoses Colon cancer screening Z12.11 Gallbladder polyp K82.4 Primary biliary cholangitis K74.3 Time Spent (min) 23
[2023-07-09 12:12] VITALS: BP 122/69; PULSE 84; BMI 18.8
== END 2023-07-09 13:29 | disposition home or self-care (01) ==
PROVIDERS: PCP Internal Medicine; Referring Provider Internal Medicine; Visit Provider Internal Medicine Gastroenterology
DX: Z12.11 Encounter for screening for malignant neoplasm of colon (principal); K82.4 Cholesterolosis of gallbladder; K74.3 Primary biliary cirrhosis; Z01.818 Encounter for other preprocedural examination
CPT/HCPCS: 99214

== ENCOUNTER → 2023-07-09 11:49 | Outpatient (BNVA) | payer OTHER, SELFPAY | PROVIDERS: PCP Internal Medicine; Visit Provider Internal Medicine Gastroenterology | DX: Z12.11 Encounter for screening for malignant neoplasm of colon (principal); K82.4 Cholesterolosis of gallbladder; K74.3 Primary biliary cirrhosis | CPT/HCPCS: 99212 ==

== ENCOUNTER 2024-01-12 13:36 | Outpatient (AMB) | payer OTHER, SELFPAY ==
--- NOTE | 2024-01-12 13:37 | A.OFFPC_ITS ---
Vital Signs 01/12/24 13:38 Height 5 ft 3 in Weight 98 lb BMI 17.4 BP 116/70 Blood Pressure Location Rt brachial Position Sitting Pulse 90 Pulse Source Pulse Oximeter Pulse Oximetry (%) 97 Oxygen Delivery Method Room Air Intake Visit Reasons: Annual PE Allergies Iodinated Contrast Media [IV CONTRAST] Allergy (Mild, Verified 01/12/24 13:38) HIVES Medication List - Last Reconciled 01/12/24 by Ericka Eng MD bisacodyl (Dulcolax (bisacodyl)) 10 mg (2 x 5 mg) PO ONCE 2 days calcium carbonate-vitamin D3 500 mg-5 mcg (200 unit) (Oysco 500/D) 1 tab PO DAILY 90 days docusate sodium 100 mg PO DAILY PRN 90 days famotidine 20 mg PO BEDTIME 90 days ibuprofen (Advil) 200 mg PO Q6H PRN mecobalamin (vitamin B12) 1,000 mcg sublingual DAILY 90 days multivitamin 1 tab PO DAILY obeticholic acid (Ocaliva) 5 mg PO DAILY 30 days polyethylene glycol 3350 (Miralax) 17 grams PO DAILY 1 day sennosides-docusate sodium 8.6-50 mg (Senna Plus) 1 tab-cap PO .twice a week 60 days simethicone (Gas-X Extra Strength) 125 mg PO BID-QID PRN 30 days ursodiol 375 mg (1.5 x 250 mg) PO BID Tobacco use date assessed: 01/12/24 Dental Screening Dental Screen Date: 01/12/24 Did you have a dental visit in the last 12 months?: Yes Did you have a dental problem in the last 6 months where you did not have access to dental care?: No Was dental information given to patient?: Patient has dentist HPI Annual PE HPI Details Patient is 63-year-old female came in today for physical examination Patient suffers from chronic allergies but is not treating her properly She is taking Zyrtec but only when symptoms get worse Patient was instructed to start taking it daily to prevent the allergies Complaining of blockage feeling left ear on examination she does not have any inflammation or infection Need an order for mammogram Need an order for OBGYN referral Colonoscopy appointment is coming in March Lab order placed to be done fasting Examination patient also have a large ventral hernia, but she is not interested surgery appointment at this time We will book a follow-up appointment to see how her allergies are with Zyrtec Will go over the labs as well [facility] Medical History Osteoporosis Osteoporosis without pathological fracture Chronic constipation Tobacco use History of ETOH abuse Diverticulosis Primary biliary cholangitis Surgical History Hx of hand surgery History of colectomy History of liver biopsy Hx of colonoscopy (~07/2012) Family History Father Anxiety Mother Diabetes mellitus Sister Breast cancer Social History Household Members: Spouse Housing: House Alcohol intake: current Alcohol intake frequency: a few times a week Alcohol type: hard liquor Patient Tobacco Use Status: Current everyday Tobacco user Cigarettes Per Day: 10 e-Cigarette/Vaping Use: Never Used Substance Use Type: Marijuana Current occupational status: employed 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 [employer] Cognitive needs: No Hearing needs: No Vision needs: No Questionnaire Thrive Questionnaire Date Thrive assessed: 12/13/21 I am a: Patient What is your living situation today?: I have a steady place to live Within the past 12 months, did the food you bought not last and you didn't have the money to get more?: I choose not to answer this question Within the past 12 months, did you worry whether your food would run out before you got money to buy more?: I choose not to answer this question Do you have trouble paying for medicines?: I choose not to answer this question Do you have trouble getting transportation to medical appointments?: I choose not to answer this question Do you have trouble paying your heating and electricity bill?: I choose not to answer this question Do you have trouble taking care of your child, family member or friend?: I choose not to answer this question Do you have trouble with day-to-day activities such as bathing, preparing meals, shopping, managing finances, etc.?: I choose not to answer this question Are you currently unemployed and looking for a job?: I choose not to answer this question Are you interested in more education?: I choose not to answer this question Please select the resources that you would like help with: None Currently or been in a relationship where the following occur: No concerns reported THRIVE Score: 0 AUDIT C Alcohol Use Questionnaire (AUDIT-C) 1. How often do you have a drink containing alcohol?: Never Total Score: 0 MERYL-7 AMB Questionnaire MERYL-7 Date MERYL - 7 assessed: 12/13/21 Feeling nervous, anxious, or on edge: 0 = Not at all Not being able to stop or control worryin = Not at all Worrying too much about different things: 0 = Not at all Trouble relaxin = Not at all Being so restless that it is hard to sit still: 0 = Not at all Becoming easily annoyed or irritable: 0 = Not at all Feeling afraid as if something awful might happen: 0 = Not at all Total MERYL-7 score (0-4 normal; 5-9 mild; 10-14 moderate; 15-21 severe): 0 Source: Developed by Drs. Boom Johnson, Shonda Denise, Obi Latif and colleagues, with an educational dara from [employer]. Review of Systems Const Denies chills, Denies fever(s) and Denies headache(s) Eyes Denies blurry vision ENT Denies headache(s), Denies nasal obstruction and Denies odynophagia Card Denies chest pain at rest and Denies chest pain with activity Resp Denies cough and Denies hemoptysis GI Denies diarrhea, Denies odynophagia, Denies vomiting and Denies hematemesis Reports as per HPI Musc Denies abnormal gait Skin/Breast Reports as per HPI Neuro Denies Neuro-related abnormal movements, Denies Abnormal speech present, Denies abnormal gait, Denies headache(s) and Denies Sensory deficit (Neuro) Psych Denies mood swings and Denies paranoia Endo Reports as per HPI David/Lymph Reports as per HPI Aller/Immun Reports as per HPI Physical exam (Primary Care) Vital Signs: Last Vital Signs Pulse 90 01/12/24 13:38 BP 116/70 01/12/24 13:38 Pulse Ox 97 01/12/24 13:38 Oxygen Delivery Method Room Air 01/12/24 13:38 BMI result Body Mass Index 17.4 Tobacco/Smoking Status: Tobacco use Status Tobacco use date assessed 01/12/24 01/12/24 13:45 Patient Tobacco Use Status Current everyday Tobacco 01/12/24 13:45 e-Cigarette/Vaping Use Never Used 01/12/24 13:45 Thrive Assessment: Date of Thrive Assessment Date Thrive assessed 12/13/21 01/12/24 13:45 Currently or been in a relationship where the following occur: No concerns reported Const General: cooperative, comfortable and no acute distress Orientation/consciousness: patient oriented x3 HENMT Head: Yes normocephalic and Yes atraumatic Eyes General: appearance normal, both eyes and all related structures Pupils: Equal, round and reactive pupils present EOM: EOMs intact bilaterally Neck Neck: Yes supple and No lymphadenopathy Thyroid: Thyroid normal Lymphatic: no lymphadenopathy noted Chest Breast/axilla palpation: normal palpation of the breasts Resp Effort & Inspection: normal respiratory effort and able to speak in complete sentences Auscultation: clear to auscultation bilaterally Cardio Heart sounds: S1 normal heart sound present and S2 normal heart sound present GI Other: Lower abdominal ventral hernia nontender Palpation (GI): Soft to palpation and nontender Auscultation: normal bowel sounds General: Yes no CVA tenderness Back/Spine/Pelvis Back: no CVA tenderness Skin General skin exam: elasticity normal and turgor normal Neuro General: patient oriented x3 and gait normal Cranial nerves: Yes Equal, round and reactive pupils present Speech: No Abnormal speech present Sensory Exam: No Sensory deficit (Neuro) Coordination: tandem gait normal and Romberg test negative Extrem General: Yes normal exam except as noted and No edema Assessment and Plan Assessment & Plan (1) Encounter for general adult medical examination with abnormal findings: Code(s): Z00.01 - Encounter for general adult medical examination with abnormal findings (2) Osteoporosis: Code(s): M81.0 - Age-related osteoporosis without current pathological fracture Qualifiers: Osteoporosis type: age-related Presence of current pathological fracture: without current pathological fracture Qualified Code(s): M81.0 - Age- related osteoporosis without current pathological fracture (3) Primary biliary cholangitis: Comment: primary biliary cholangitis (Dx'd 07/21), LBx 07/2012 Stage 1-2/ 4. Mild portal fibrosis present, Continue Ursodiol 250 mg 1.5 tablets twice daily 10/2021 Obeticholic acid (Ocaliva) 5 mg daily added due to elevated AP and GGT Code(s): K74.3 - Primary biliary cirrhosis (4) Chronic constipation: Code(s): K59.09 - Other constipation (5) Environmental allergies: Code(s): Z91.09 - Other allergy status, other than to drugs and biological substances Plan Patient is 63-year-old female came in today for physical examination Patient suffers from chronic allergies but is not treating her properly She is taking Zyrtec but only when symptoms get worse Patient was instructed to start taking it daily to prevent the allergies Complaining of blockage feeling left ear on examination she does not have any inflammation or infection Need an order for mammogram Need an order for OBGYN referral Colonoscopy appointment is coming in March [facility] LFT elevation Lab order placed to be done fasting Examination patient also have a large ventral hernia, but she is not interested surgery appointment at this time We will book a follow-up appointment to see how her allergies are with Zyrtec Will go over the labs as well Orders: Orders MM tomosynthesis screening BI Today Z12.31 - Encounter for screening mammogram for malignant neoplasm of breast Complete Blood Count Auto Diff Today K59.09 - Other constipation, K74.3 - Primary biliary cirrhosis, M81.0 - Age-related osteoporosis without current pathological fracture, Z00.01 - Encounter for general adult medical examination with abnormal findings Comprehensive Temple. Panel Fast Today K59.09 - Other constipation, K74.3 - Primary biliary cirrhosis, M81.0 - Age-related osteoporosis without current pathological fracture, Z00.01 - Encounter for general adult medical examination with abnormal findings Lipid Panel Today K59.09 - Other constipation, K74.3 - Primary biliary cirrhosis, M81.0 - Age-related osteoporosis without current pathological fracture, Z00.01 - Encounter for general adult medical examination with abnormal findings TSH reflex Free T4 Today K59.09 - Other constipation, K74.3 - Primary biliary cirrhosis, M81.0 - Age-related osteoporosis without current pathological fracture, Z00.01 - Encounter for general adult medical examination with abnormal findings Vitamin D 25-OH (D2 and D3) Today K59.09 - Other constipation, K74.3 - Primary biliary cirrhosis, M81.0 - Age-related osteoporosis without current pathological fracture, Z00.01 - Encounter for general adult medical examination with abnormal findings Referrals REGULATORY AFFAIRS ANALYST Referral Z01.419 - Encounter for gynecological examination (general) (routine) without abnormal findings Coding Level of Care Code Est Pt Level 3 (22690) Est Pt Prev Care 40-64y(42406) Diagnoses Encounter for general adult medical examination with abnormal findings Z00.01 Age-related osteoporosis without current pathological fracture M81.0 Osteoporosis type: age-related Presence of current pathological fracture: without current pathological fracture Primary biliary cholangitis K74.3 Chronic constipation K59.09 Environmental allergies Z91.09
[2024-01-12 13:38] VITALS: BP 116/70; PULSE 90; O2SAT 97; BMI 17.4
== END 2024-01-12 14:14 | disposition home or self-care (01) ==
PROVIDERS: PCP Internal Medicine; Visit Provider Internal Medicine
DX: Z00.00 Encounter for general adult medical examination without abnormal findings (principal); M81.0 Age-related osteoporosis without current pathological fracture; K74.3 Primary biliary cirrhosis; K59.09 Other constipation; Z91.09 Other allergy status, other than to drugs and biological substances
CPT/HCPCS: 99396

== ENCOUNTER 2024-02-03 10:54 | Outpatient (REF) | payer OTHER, SELFPAY ==
[2024-02-03 13:37] LABS: MANUAL DIFF FLAG NO
[2024-02-03 13:41] LABS: Basophils Percent Auto 0.6 % (0-2); Eosinophils Absolute Auto 0.1 X10*3/uL (0.0-0.4); Eosinophils Percent Auto 1.9 % (0-4); Hematocrit 41.6 % (37.0-47.0); Hemoglobin 13.6 g/dl (12.0-16.0); Imm Gran Abs Auto 0.01 X10*3/uL (0.00-0.03); Imm Gran Pct Auto 0.2 % (0.0-0.4); Lymphocytes Absolute Auto 1.5 X10*3/uL (1.2-4.9); Lymphocytes Percent Auto 23.3 % (20-40); Mean Corpuscular HGB Conc 32.7 g/dl (31.0-35.0); Mean Corpuscular Hemoglobin 31.6 pg (27.0-33.0); Mean Corpuscular Volume 96.5 fL (80.0-98.0); Monocytes Absolute Auto 0.3 X10*3/uL (0.1-1.2); Monocytes Percent Auto 4.7 % (2-11); Neutrophils Absolute Auto 4.4 x10*3/uL (2.0-8.3); Neutrophils Percent Auto 69.3 % (45-73); Platelet Count 217 X10*3/uL (160-400); Red Blood Count 4.31 X10*6/uL (4.20-5.50); Red Cell Distribution Width 12.8 % (11.0-16.0); White Blood Count 6.4 X10*3/uL (4.8-10.8)
[2024-02-03 14:23] LABS: Alanine Aminotransferase 16 U/L (0-31); Albumin Level 3.8 g/dL (3.5-5.0); Alkaline Phosphatase 205 U/L (39-117); Anion Gap 14 (12-20); Aspartate Amino Transferase 26 U/L (5-31); Bilirubin Total 0.5 mg/dL (0.0-1.0); Blood Urea Nitrogen 12 mg/dL (9-16); Calcium 9.6 mg/dL (8.4-10.2); Carbon Dioxide 26 mmol/L (22-29); Chloride 107 mmol/L (96-108); Cholesterol 238 mg/dL (<200); Estimated Glomerular Filt Rate > 60; Glucose Fasting 105 mg/dL (60-99); HDL Cholesterol 96 mg/dL (>40); LDL Cholesterol Calculated 115 mg/dL (<100); Potassium 3.7 mmol/L (3.3-5.1); Sodium 143 mmol/L (135-145); TSH reflex Free T4 2.59 uIU/mL (0.32-4.0); Total Protein 7.3 g/dL (6.5-8.0); Triglycerides 137 mg/dL (<150)
[2024-02-07 13:58] LABS: Vitamin D 25-OH, D2 <4 ng/mL; Vitamin D 25-OH, D3 33 ng/mL; Vitamin D 25-OH, Total 33 ng/mL (30-100)
== END 2024-02-03 10:55 | disposition home or self-care (01) ==
LOC: HO.HMGCLDS 10:54
PROVIDERS: PCP Internal Medicine; Visit Provider Internal Medicine
DX: Z00.01 Encounter for general adult medical examination with abnormal findings (principal); M81.0 Age-related osteoporosis without current pathological fracture; K74.3 Primary biliary cirrhosis; K59.09 Other constipation
CPT/HCPCS: 36415; 80053; 80061; 82306; 84443; 85025

== ENCOUNTER 2024-02-12 12:59 | Outpatient (REF) | payer OTHER, SELFPAY ==
--- NOTE | ~2024-02-12 | MM_ITS ---
EXAMINATION: MM SCREENING DIGITAL BREAST TOMOSYNTHESIS, BILATERAL CLINICAL INFORMATION: Screening. Asymptomatic. COMPARISON: Mammography: Comparison is made with available priors TECHNIQUE: Digital breast mammography with tomosynthesis is performed in both the craniocaudal and mediolateral oblique views along with computer-aided detection (CAD). FINDINGS: There are scattered areas of fibroglandular density (ACR BI-RADS breast composition Category b). Bilateral circumscribed oval masses are stable from multiple priors back to 2013 consistent with benign fibrocystic changes.. There are no significant masses, abnormal calcifications, or other abnormalities. MM/MM tomosynthesis screening BI IMPRESSION: No mammographic evidence of malignancy. ASSESSMENT: BI-RADS BI-RADS 2 - Benign Findings RECOMMENDATION: Routine annual mammography screening. 1 year F/U This examination should not preclude the clinical evaluation of a suspicious palpable abnormality. This patient's information was entered into a reminder system with a target due date for their next mammogram. Electronically signed by: Kesha Vasquez DO 02/24/2024 01:52 PM EDT
== END 2024-02-12 13:00 | disposition home or self-care (01) ==
LOC: HO.MAMMO 12:59
PROVIDERS: PCP Internal Medicine; Visit Provider Internal Medicine
DX: Z12.31 Encounter for screening mammogram for malignant neoplasm of breast (principal)
CPT/HCPCS: 77063; 77067

== ENCOUNTER → 2024-02-12 13:15 | Outpatient (BNV) | payer OTHER, SELFPAY | PROVIDERS: PCP Internal Medicine; Visit Provider Internal Medicine | DX: Z12.31 Encounter for screening mammogram for malignant neoplasm of breast (principal) | CPT/HCPCS: 77063; 77067 ==

== ENCOUNTER 2024-04-05 15:01 | Outpatient (AMB) | payer OTHER, SELFPAY ==
--- NOTE | 2024-04-05 15:05 | MHC.PC.OV ---
Vital Signs 04/05/24 15:10 Height 5 ft 3 in Weight 101 lb 4 oz BMI 17.9 BP 110/70 Blood Pressure Location Rt brachial Position Sitting Pulse 93 Pulse Source Pulse Oximeter Pulse Oximetry (%) 96 Oxygen Delivery Method Room Air Intake Visit Reasons: 2 months Allergies Iodinated Contrast Media [IV CONTRAST] Allergy (Mild, Verified 01/12/24 13:38) HIVES Medication List - Last Reconciled 04/05/24 by Ericka Eng MD bisacodyl (Dulcolax (bisacodyl)) 10 mg (2 x 5 mg) PO ONCE 2 days calcium carbonate-vitamin D3 500 mg-5 mcg (200 unit) (Oysco 500/D) 1 tab PO DAILY 90 days docusate sodium 100 mg PO DAILY PRN 90 days famotidine 20 mg PO BEDTIME 90 days ibuprofen (Advil) 200 mg PO Q6H PRN mecobalamin (vitamin B12) 1,000 mcg sublingual DAILY 90 days multivitamin 1 tab PO DAILY obeticholic acid (Ocaliva) 5 mg PO DAILY 30 days polyethylene glycol 3350 (Miralax) 17 grams PO DAILY 1 day sennosides-docusate sodium 8.6-50 mg (Senna Plus) 1 tab-cap PO .twice a week 60 days simethicone (Gas-X Extra Strength) 125 mg PO BID-QID PRN 30 days ursodiol 375 mg (1.5 x 250 mg) PO BID Tobacco use date assessed: 01/12/24 Dental Screening Dental Screen Date: 01/12/24 HPI 2 months HPI Details Chief Complaint Patient reports persistent allergies characterized by mucus and postnasal drip. Assessment and Plan 63-year-old female with a history of allergies and osteoporosis , elevated alkaline phosphatase, presenting for a follow-up visit. The primary reason for the visit is to address ongoing allergic symptoms and review laboratory results. The patient reports that current treatment with daily Zyrtec is effective in managing symptoms of mucus production and postnasal drip, although she experiences occasional fluctuations in symptom control potentially due to inconsistent timing of medication intake. Laboratory findings indicate prediabetes and elevated alkaline phosphatase levels, with known familial diabetes history. The patient also reports occasional ibuprofen use for headaches and back pain, with noted gastrointestinal discomfort, and has been advised regarding potential hepatotoxicity with acetaminophen and alternative pain management options. Further management includes ongoing evaluation with a private duty nurse due to existing liver and gastric conditions. 1. Abnormal levels of other serum enzymes R74.8 Continuous monitoring of liver enzymes was recommended, with ongoing evaluation through her private duty nurse. It was emphasized that ibuprofen should be taken strictly as needed and with food due to the risks of gastrointestinal and hepatic disturbances. Discussion with her private duty nurse regarding suitable analgesic options was suggested. 2. Prediabetes The patient?s fasting blood glucose level was noted at 105 mg/dL. Lifestyle modifications were recommended, including the reduction of soda and junk food intake, given the familial risk of diabetes. Fruit juices should be consumed in moderation with preference given to clear sodas such as club soda with a small amount of juice for flavor. 3. Osteoporosis Patient confirmed she has ongoing refills of her osteoporosis medication (presumably calcium carbonate). There was no indication for immediate changes in this treatment plan. 4. Allergic Rhinitis The patient has been instructed to continue daily Zyrtec (cetirizine) to manage allergic symptoms. She is reminded to take the medication consistently at bedtime to optimize effectiveness and reduce postnasal drip. Additional medication for allergy was discussed, but it was agreed to proceed with current management due to patient preference and symptom control with Zyrtec alone. Problem List - Allergic Rhinitis - Postnasal Drip - Prediabetes - Elevated Liver Enzyme (Alkaline Phosphatase) - Osteoporosis Patient Instructions - Take Zyrtec at the same time every night before bed. - Reduce intake of soda and high sugar foods/drinks to manage blood sugar levels. - Use alternatives such as clear club soda with a splash of juice instead of regular soda. - Use ibuprofen only as necessary, with food or milk to prevent stomach issues, and consult her private duty nurse regarding alternative pain medications. - Monitor liver function as scheduled with her private duty nurse appointments. - Consider switching to vinyl or laminate butch to reduce allergens in the home. - Ensure pharmacy has updated information for prescription refills. [facility] Medical History Osteoporosis without pathological fracture Chronic constipation Tobacco use History of ETOH abuse Diverticulosis Primary biliary cholangitis Surgical History Hx of hand surgery History of colectomy History of liver biopsy Hx of colonoscopy (~07/2012) Family History Father Anxiety Mother Diabetes mellitus Sister Breast cancer Social History Household Members: Spouse Housing: House Alcohol intake: current Alcohol intake frequency: a few times a week Alcohol type: hard liquor Patient Tobacco Use Status: Current everyday Tobacco user Cigarettes Per Day: 10 e-Cigarette/Vaping Use: Never Used Substance Use Type: Marijuana Current occupational status: employed 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 1. Little interest or pleasure in doing things: more than half the days 2. Feeling down, depressed, or hopeless: not at all 3. Trouble falling or staying asleep, or sleeping too much: nearly every day 4. Feeling tired or having little energy: nearly every day 5. Poor appetite or overeating: not at all 6. Feeling bad about yourself - or that you are a failure or have let yourself or your family down: not at all 7. Trouble concentrating on things, such as reading the newspaper or watching television: not at all 8. Moving or speaking so slowly that other people could have noticed. Or the opposite - being so fidgety or restless that you have been moving around a lot more than usual: not at all 9. Thoughts that you would be better off or of hurting yourself in some way: not at all Total score: 8 Depression Screening Interpretation: Negative Depression Screening Done: Yes [id number] - PHQ-9 Billing: Yes Source: Developed by Drs. Boom Johnson, Shonda Denise, Obi Latif and colleagues, with an educational dara from [employer]. Thrive Questionnaire Date Thrive assessed: 01/12/24 I am a: Patient What is your living situation today?: I have a steady place to live Within the past 12 months, did the food you bought not last and you didn't have the money to get more?: I choose not to answer this question Within the past 12 months, did you worry whether your food would run out before you got money to buy more?: I choose not to answer this question Do you have trouble paying for medicines?: I choose not to answer this question Do you have trouble getting transportation to medical appointments?: I choose not to answer this question Do you have trouble paying your heating and electricity bill?: I choose not to answer this question Do you have trouble taking care of your child, family member or friend?: I choose not to answer this question Do you have trouble with day-to-day activities such as bathing, preparing meals, shopping, managing finances, etc.?: I choose not to answer this question Are you currently unemployed and looking for a job?: I choose not to answer this question Are you interested in more education?: I choose not to answer this question Please select the resources that you would like help with: None Currently or been in a relationship where the following occur: No concerns reported THRIVE Score: 0 MERYL-7 AMB Questionnaire MERYL-7 Date MERYL - 7 assessed: 12/13/21 Source: Developed by Drs. Boom Johnson, Shonda Denise, Obi Latif and colleagues, with an educational dara from [employer]. Review of Systems Const Denies chills and Denies fever(s) ENT Denies epistaxis and Denies nasal discharge Card Denies chest pain Resp Denies chest congestion, Denies cough and Denies hemoptysis GI Denies diarrhea and Denies nausea Skin/Breast Denies rash Neuro Reports no additional complaints Psych Reports no additional complaints Endo Reports no additional complaints Physical exam (Primary Care) Vital Signs: Last Vital Signs Pulse 93 04/05/24 15:10 BP 110/70 04/05/24 15:10 Pulse Ox 96 04/05/24 15:10 Oxygen Delivery Method Room Air 04/05/24 15:10 BMI result Body Mass Index 17.9 Tobacco/Smoking Status: Tobacco use Status Tobacco use date assessed 01/12/24 04/05/24 15:07 Patient Tobacco Use Status Current everyday Tobacco 04/05/24 15:07 e-Cigarette/Vaping Use Never Used 04/05/24 15:07 PHQ-9: PHQ-9 Score PHQ-9: Total score 8 04/05/24 15:07 Depression Screening Interpretation: Negative Thrive Assessment: Date of Thrive Assessment Date Thrive assessed 01/12/24 04/05/24 15:07 Currently or been in a relationship where the following occur: No concerns reported Const General: cooperative, comfortable and no acute distress Orientation/consciousness: patient oriented x3 HENMT Head: Yes normocephalic Eyes General: appearance normal, both eyes and all related structures Neck Neck: Yes supple Resp Effort & Inspection: normal respiratory effort, no cough and no stridor Cardio Rhythm: regular rhythm Heart sounds: S1 normal heart sound present and S2 normal heart sound present Skin General skin exam: turgor normal Neuro General: patient oriented x3, tone normal and moves all extremities Extrem Right lower extremity: no edema Left lower extremity: no edema Coding Level of Care Code Est Pt Level 4 (88336) Complex EM visit Add On G2211 Diagnoses Environmental allergies Z91.09 Postnasal drip R09.82 Age-related osteoporosis without current pathological fracture M81.0 Osteoporosis type: age-related Presence of current pathological fracture: without current pathological fracture Tobacco use Z72.0 Primary biliary cholangitis K74.3 Additional Codes PHQ-9 - 77384 - PHQ-9 Billing: Yes ([id number]) Assessment & Plan Assessment & Plan (1) Environmental allergies: Code(s): Z91.09 - Other allergy status, other than to drugs and biological substances Category: Medical (2) Postnasal drip: Code(s): R09.82 - Postnasal drip Category: Medical (3) Osteoporosis: Code(s): M81.0 - Age-related osteoporosis without current pathological fracture Category: Medical Qualifiers: Osteoporosis type: age-related Presence of current pathological fracture: without current pathological fracture Qualified Code(s): M81.0 - Age-related osteoporosis without current pathological fracture (4) Tobacco use: Code(s): Z72.0 - Tobacco use Category: Social Hx (5) Primary biliary cholangitis: Comment: primary biliary cholangitis (Dx'd 07/21), LBx 07/2012 Stage 1-2/ 4. 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 Assessment and Plan 63-year-old female with a history of allergies and osteoporosis , elevated alkaline phosphatase, presenting for a follow-up visit. The primary reason for the visit is to address ongoing allergic symptoms and review laboratory results. The patient reports that current treatment with daily Zyrtec is effective in managing symptoms of mucus production and postnasal drip, although she experiences occasional fluctuations in symptom control potentially due to inconsistent timing of medication intake. Laboratory findings indicate prediabetes and elevated alkaline phosphatase levels, with known familial diabetes history. The patient also reports occasional ibuprofen use for headaches and back pain, with noted gastrointestinal discomfort, and has been advised regarding potential hepatotoxicity with acetaminophen and alternative pain management options. Further management includes ongoing evaluation with a private duty nurse due to existing liver and gastric conditions. 1. Abnormal levels of other serum enzymes R74.8 Continuous monitoring of liver enzymes was recommended, with ongoing evaluation through her private duty nurse. It was emphasized that ibuprofen should be taken strictly as needed and with food due to the risks of gastrointestinal and hepatic disturbances. Discussion with her private duty nurse regarding suitable analgesic options was suggested. 2. Prediabetes The patient?s fasting blood glucose level was noted at 105 mg/dL. Lifestyle modifications were recommended, including the reduction of soda and junk food intake, given the familial risk of diabetes. Fruit juices should be consumed in moderation with preference given to clear sodas such as club soda with a small amount of juice for flavor. 3. Osteoporosis Patient confirmed she has ongoing refills of her osteoporosis medication (presumably calcium carbonate). There was no indication for immediate changes in this treatment plan. 4. Allergic Rhinitis The patient has been instructed to continue daily Zyrtec (cetirizine) to manage allergic symptoms. She is reminded to take the medication consistently at bedtime to optimize effectiveness and reduce postnasal drip. Additional medication for allergy was discussed, but it was agreed to proceed with current management due to patient preference and symptom control with Zyrtec alone. Problem List - Allergic Rhinitis - Postnasal Drip - Prediabetes - Elevated Liver Enzyme (Alkaline Phosphatase) - Osteoporosis Patient Instructions - Take Zyrtec at the same time every night before bed. - Reduce intake of soda and high sugar foods/drinks to manage blood sugar levels. - Use alternatives such as clear club soda with a splash of juice instead of regular soda. - Use ibuprofen only as necessary, with food or milk to prevent stomach issues, and consult her private duty nurse regarding alternative pain medications. - Monitor liver function as scheduled with her private duty nurse appointments. - Consider switching to vinyl or laminate butch to reduce allergens in the home. - Ensure pharmacy has updated information for prescription refills.
[2024-04-05 15:10] VITALS: BP 110/70; PULSE 93; O2SAT 96; BMI 17.9
== END 2024-04-05 16:14 | disposition home or self-care (01) ==
PROVIDERS: PCP Internal Medicine; Visit Provider Internal Medicine
DX: M81.0 Age-related osteoporosis without current pathological fracture (principal); K74.3 Primary biliary cirrhosis; Z91.09 Other allergy status, other than to drugs and biological substances; R09.82 Postnasal drip; Z72.0 Tobacco use

== ENCOUNTER → 2024-04-05 15:01 | Outpatient (BNVA) | payer OTHER, SELFPAY | PROVIDERS: PCP Internal Medicine; Visit Provider Internal Medicine | DX: R09.82 Postnasal drip (principal); M81.0 Age-related osteoporosis without current pathological fracture; K74.3 Primary biliary cirrhosis; Z72.0 Tobacco use; Z79.01 Long term (current) use of anticoagulants | CPT/HCPCS: 96127; 99212 ==

== ENCOUNTER 2025-01-24 14:07 | Outpatient (REF) | payer OTHER, SELFPAY ==
[2025-01-24 16:25] LABS: Hematocrit 42.3 % (37.0-47.0); Hemoglobin 13.4 g/dl (12.0-16.0); Mean Corpuscular HGB Conc 31.7 g/dl (31.0-35.0); Mean Corpuscular Hemoglobin 32.1 pg (27.0-33.0); Mean Corpuscular Volume 101.2 fL (80.0-98.0); NRBC Abs Auto 0.000 X10*3/uL (0.0-0.012); NRBC Pct Auto 0.0 /100WBC (0.0-0.2); Platelet Count 220 X10*3/uL (160-400); Red Blood Count 4.18 X10*6/uL (4.20-5.50); White Blood Count 6.3 X10*3/uL (4.8-10.8)
[2025-01-24 16:41] LABS: Alanine Aminotransferase 16 U/L (0-31); Albumin Level 4.1 g/dL (3.5-5.0); Alkaline Phosphatase 244 U/L (39-117); Anion Gap 11 (12-20); Aspartate Amino Transferase 33 U/L (5-31); Blood Urea Nitrogen 8 mg/dL (9-16); Calcium 9.0 mg/dL (8.4-10.2); Carbon Dioxide 27 mmol/L (22-29); Chloride 110 mmol/L (96-108); Estimated Glomerular Filt Rate > 60; Gamma Glutamyl Transpeptidase 682 U/L (7-33); Potassium 3.7 mmol/L (3.3-5.1); Sodium 144 mmol/L (135-145); Total Protein 7.7 g/dL (6.5-8.0)
[2025-01-24 16:45] LABS: INTERNATIONAL NORM RATIO 0.8 (0.9-1.1); Prothrombin Time 9.5 SEC (10.9-12.4)
[2025-01-27 08:14] LABS: Mitochondrial Ab Titer >1:640 titer (<1:20)
== END 2025-01-24 14:08 | disposition home or self-care (01) ==
LOC: HO.HMGCLDS 14:07
PROVIDERS: PCP Internal Medicine; Visit Provider Internal Medicine Gastroenterology
DX: Z23 Encounter for immunization (principal); Z00.01 Encounter for general adult medical examination with abnormal findings; Z91.09 Other allergy status, other than to drugs and biological substances; K74.3 Primary biliary cirrhosis; Z79.899 Other long term (current) drug therapy; M81.0 Age-related osteoporosis without current pathological fracture
CPT/HCPCS: 36415; 80053; 82977; 85027; 85610; 86015; 86381; 90471; 90472; 90656; 90715; 96127; 99396

== ENCOUNTER 2025-01-24 14:07 | Outpatient (AMB) | payer OTHER, SELFPAY ==
[2025-01-24 14:11] VITALS: BP 130/72; PULSE 80; O2SAT 100; BMI 18.7
--- NOTE | 2025-01-24 14:11 | A.OFFPC_ITS ---
Vital Signs 01/24/25 14:11 Height 5 ft 3 in Weight 105 lb 6 oz BMI 18.7 BP 130/72 Blood Pressure Location Rt brachial Position Sitting Pulse 80 Pulse Source Pulse Oximeter Pulse Oximetry (%) 100 Intake Visit Reasons: annual visit [employer] Professional Required: No Allergies Iodinated Contrast Media (IV CONTRAST) Allergy (Mild, Verified 01/24/25 14:12) HIVES Medication List - Last Reconciled 01/24/25 by Ericka Eng MD calcium carbonate-vitamin D3 500 mg-5 mcg (200 unit) (Oysco 500/D) 1 tab PO DAILY 90 days docusate sodium 100 mg PO DAILY PRN 90 days famotidine 20 mg PO BEDTIME 90 days ibuprofen (Advil) 200 mg PO Q6H PRN mecobalamin (vitamin B12) 1,000 mcg sublingual DAILY 90 days multivitamin 1 tab PO DAILY obeticholic acid (Ocaliva) 5 mg PO DAILY 30 days sennosides-docusate sodium 8.6-50 mg (Senna Plus) 1 tab-cap PO .twice a week 60 days simethicone (Gas-X Extra Strength) 125 mg PO BID-QID PRN 30 days ursodiol 375 mg (1.5 x 250 mg) PO BID Tobacco use date assessed: 01/24/25 Dental Screening Dental Screen Date: 01/24/25 Did you have a dental visit in the last 12 months?: Yes Did you have a dental problem in the last 6 months where you did not have access to dental care?: No Was dental information given to patient?: Patient has dentist HPI annual visit HPI Details History of Present Illness The patient is a 64-year-old female presenting with wellness examination. Liver Disease: - The patient is currently taking Ocaliv a and ursodiol for the management of liver condition. - Reports regular blood work reviews to monitor liver enzymes; these were stable, but alkaline phosphatase was previously noted as worse. - Last lab work was conducted last year. Heartburn: - Managed with famotidine. Prediabetes: - diet-controlled. Constipation: - Managed with stool softeners. Osteoporosis: - Patient is taking calcium and vitamin support. Requests a refill during this visit. Medical History: - Liver Disease - Prediabetes - Heartburn - Osteoporosis - Constipation Social History: - Retired and no longer working. - Resides in [place], [place]. - Has previously changed insurance to ac commodate existing doctors and local pharmacy. Health Maintenance - Due for mammogram (last done in r of the previous year). - Due for colonoscopy; unable to schedul e due to mixed appointments. - Overdue for tetanus vaccine; last take n in 2011. - Recommended to have pap smear; has a u terus and no recent [employer] visit. - Regularly takes Zyrtec for allergy man agement. Te-Moak of Care - Following with Dr. Molina for liver con dition management - Dental care with Dr. Zaidi, per gretel cheney note for contact. Medications - Ocaliva for liver disease. - Ursodiol for liver disease. - Famotidine for heartburn. - Stool softeners for constipation. - Multivitamins and B12 supplementation. - calcium for osteoporosis. Patient Instructions - Schedule and attend a mammogram. - Follow up with a colonoscopy appointme nt. - Consider Pap smear if due, potentially schedule [employer] visit. - Receive tetanus vaccine today; conside r scheduling or obtaining another at a pharmacy if missed. - follow up with Gastroenterology Return in 2-year-old physical exam Review of Systems - General: No fever no chills - Neurological: No headaches no dizzin ess - Ear nose throat: No sore throat no hearing difficulty no ear pain - Cardiovascular: No syncope, no chest pain, no palpitations - Gastrointestinal: No nausea vomiting or diarrhea - Endocrine: No polyuria polydipsia no heat intolerance - Genitourinary: No dysuria - Skin: No new complaints Physical Exam General: Cooperative, healthy appearing, comfortable, no acute distress Orientation: Patient oriented x3 Head: Normal to inspection Ears: Within normal limit visually Nose: Normal external nose present Face and sinus: Normal facial exam Eyes: Appearance normal, extraocular movement intact pupils reactive Neck: Normal visual inspection and supple Respiratory: Normal respiratory effort and able to speak in complete sentences. Clear to auscultation, no stridor Cardiovascular: S1 and S2 RRR Breast exam declined GI: Belly is soft, no nausea or vomiting Skin: Turgor normal, no acute findings Neuro: Patient oriented x3, motor sensory intact, balance intact, tandem pass Extremities: Normal to inspection, range of motion intact [facility] Medical History Osteoporosis without pathological fracture Chronic constipation Tobacco use History of ETOH abuse Diverticulosis Primary biliary cholangitis Surgical History Hx of hand surgery History of colectomy History of liver biopsy Hx of colonoscopy (~07/2012) Family History Father Anxiety Mother Diabetes mellitus Sister Breast cancer Social History Household Members: Spouse Housing: House Alcohol intake: current Alcohol intake frequency: a few times a week Alcohol type: hard liquor Patient Tobacco Use Status: Current everyday Tobacco user Cigarettes Per Day: 10 e-Cigarette/Vaping Use: Never Used Substance Use Type: Marijuana Current occupational status: employed Current occupation: [employer] Cognitive needs: No Hearing needs: No Vision needs: No Questionnaire PHQ-9 Over the last 2 weeks, how often have you been bothered by any of the following problems? 1. Little interest or pleasure in doing things: more than half the days 2. Feeling down, depressed, or hopeless: not at all 3. Trouble falling or staying asleep, or sleeping too much: nearly every day 4. Feeling tired or having little energy: nearly every day 5. Poor appetite or overeating: not at all 6. Feeling bad about yourself - or that you are a failure or have let yourself or your family down: not at all 7. Trouble concentrating on things, such as reading the newspaper or watching television: not at all 8. Moving or speaking so slowly that other people could have noticed. Or the opposite - being so fidgety or restless that you have been moving around a lot more than usual: not at all 9. Thoughts that you would be better off or of hurting yourself in some way: not at all Total score: 8 Depression Screening Interpretation: Negative Depression Screening Done: Yes 47688 - PHQ-9 Billing: Yes Source: Developed by Drs. Boom Johnson, Shonda Denise, Obi Latif and colleagues, with an educational dara from [employer]. Thrive Questionnaire Date Thrive assessed: 01/24/25 I am a: Patient What is your living situation today?: I have a steady place to live Within the past 12 months, did the food you bought not last and you didn't have the money to get more?: I choose not to answer this question Within the past 12 months, did you worry whether your food would run out before you got money to buy more?: I choose not to answer this question Do you have trouble paying for medicines?: I choose not to answer this question Do you have trouble getting transportation to medical appointments?: I choose not to answer this question Do you have trouble paying your heating and electricity bill?: I choose not to answer this question Do you have trouble taking care of your child, family member or friend?: I choose not to answer this question Do you have trouble with day-to-day activities such as bathing, preparing meals, shopping, managing finances, etc.?: I choose not to answer this question Are you currently unemployed and looking for a job?: I choose not to answer this question Are you interested in more education?: I choose not to answer this question Please select the resources that you would like help with: None Currently or been in a relationship where the following occur: No concerns reported THRIVE Score: 0 AUDIT C Alcohol Use Questionnaire (AUDIT-C) 1. How often do you have a drink containing alcohol?: Never 3. How often do you have six or more drinks on one occasion?: Never Total Score: 0 Score Reviewed/Action Taken: Yes MERYL-7 AMB Questionnaire MERYL-7 Date MERYL - 7 assessed: 01/24/25 Feeling nervous, anxious, or on edge: 1 = Several days Not being able to stop or control worryin = Not at all Worrying too much about different things: 0 = Not at all Trouble relaxin = Not at all Being so restless that it is hard to sit still: 0 = Not at all Becoming easily annoyed or irritable: 1 = Several days Feeling afraid as if something awful might happen: 0 = Not at all Total MERYL-7 score (0-4 normal; 5-9 mild; 10-14 moderate; 15-21 severe): 2 Source: Developed by Drs. Boom Johnson, Shonda Denise, Obi Latif and colleagues, with an educational dara from [employer]. MERYL-7 Assessment Billing MERYL-7 Assessment Tool: MERYL-7 Assessment 53340 Physical exam (Primary Care) Vital Signs: Last Vital Signs Pulse 80 01/24/25 14:11 BP 130/72 01/24/25 14:11 Pulse Ox 100 01/24/25 14:11 BMI result Body Mass Index 18.7 Tobacco/Smoking Status: Tobacco use Status Tobacco use date assessed 01/24/25 01/24/25 14:13 Patient Tobacco Use Status Current everyday Tobacco 01/24/25 14:13 e-Cigarette/Vaping Use Never Used 01/24/25 14:13 PHQ-9: PHQ-9 Score PHQ-9: Total score 8 01/24/25 14:51 Depression Screening Interpretation: Negative Thrive Assessment: Date of Thrive Assessment Date Thrive assessed 01/24/25 01/24/25 14:13 Currently or been in a relationship where the following occur: No concerns reported Office Procedures Flu Questionnaire Does the patient have a severe egg allergy?: No Does the patient have severe life threatening allergies?: No Does the patient have a fever or illness today?: No Has the patient ever had Guillain-Frankfort Syndrome?: No Has the patient ever had any past reaction to a flu shot?: No Immunizations Fluarix [id number] (PF) 45 mcg (15 mcg x 3)/0.5 mL IM syringe Performing Provider: Ericka Eng MD Performing Location: [facility] Administered by: Gareth Lyles CMA on 01/24/25 14:51 Dose Route Admin Location Dispensed Lot Number Expiration Date [facility] Vice President Regulatory 0.5 mL IM Right Deltoid 0.5 mL [id number] 11/07/25 60011-803-97 [facility] Given Date VIS Provided VIS Publication Date 01/24/25 Single Vaccine 24 Eligibility Eligibility Date Funding Source Not [facility] Eligible 01/24/25 Private Boostrix Tdap 2.5 Lf unit-8 mcg-5 Lf/0.5 mL intramuscular syringe Performing Provider: Ericka Eng MD Performing Location: [facility] Administered by: Gareth Lyles CMA on 01/24/25 14:51 Dose Route Admin Location Dispensed Lot Number Expiration Date [facility] Vice President Regulatory 0.5 mL IM Left Deltoid 0.5 mL [id number] 03/03/27 62447-877-30 [id number] Total Dispensed Waste 0.5 mL 0 % VIS Given Date VIS Provided VIS Publication Date 01/24/25 Single Vaccine 20 Eligibility Eligibility Date Funding Source Not [facility] Eligible 01/24/25 Private Coding Level of Care Code Est Pt Level 3 (71211) Est Pt Prev Care 40-64y(35910) Diagnoses Encounter for general adult medical examination with abnormal findings Z00.01 Primary biliary cholangitis K74.3 Age-related osteoporosis without current pathological fracture M81.0 Osteoporosis type: age-related Presence of current pathological fracture: without current pathological fracture Environmental allergies Z91.09 Additional Codes MERYL-7 Assessment Billing - MERYL-7 Assessment Tool: MERYL-7 Assessment 10224 ([id number]) PHQ-9 - 35349 - PHQ-9 Billing: Yes ([id number]) Assessment & Plan Assessment & Plan (1) Encounter for general adult medical examination with abnormal findings: Code(s): Z00.01 - Encounter for general adult medical examination with abnormal findings Category: Medical (2) Primary biliary cholangitis: Comment: primary biliary cholangitis (Dx'd 07/21), LBx 07/2012 Stage 1-2/ 4. Mild portal fibrosis present, Continue Ursodiol 250 mg 1.5 tablets twice daily 10/2021 Obeticholic acid (Ocaliva) 5 mg daily added due to elevated AP and GGT Code(s): K74.3 - Primary biliary cirrhosis Category: Medical (3) Osteoporosis: Code(s): M81.0 - Age-related osteoporosis without current pathological fracture Category: Medical Qualifiers: Osteoporosis type: age-related Presence of current pathological fracture: without current pathological fracture Qualified Code(s): M81.0 - Age- related osteoporosis without current pathological fracture (4) Environmental allergies: Code(s): Z91.09 - Other allergy status, other than to drugs and biological substances Category: Medical Plan History of Present Illness The patient is a 64-year-old female presenting with wellness examination. Liver Disease: - The patient is currently taking Ocaliva and ursodiol for the management of liver condition. - Reports regular blood work reviews to monitor liver enzymes; these were stable, but alkaline phosphatase was previously noted as worse. - Last lab work was conducted last year. Heartburn: - Managed with famotidine. Prediabetes: - diet-controlled. Constipation: - Managed with stool softeners. Osteoporosis: - Patient is taking calcium and vitamin support. Requests a refill during this visit. Medical History: - Liver Disease - Prediabetes - Heartburn - Osteoporosis - Constipation Social History: - Retired and no longer working. - Resides in [place], [place]. - Has previously changed insurance to accommodate existing doctors and local pharmacy. Health Maintenance - Due for mammogram (last done in February of the previous year). - Due for colonoscopy; unable to schedule due to mixed appointments. - Overdue for tetanus vaccine; last taken in 2011. - Recommended to have pap smear; has a uterus and no recent [employer] visit. - Regularly takes Zyrtec for allergy management. Te-[place]ak of Care - Following with Dr. Molina for liver condition management - Dental care with Dr. Zaidi, per patient note for contact. Medications - Ocaliva for liver disease. - Ursodiol for liver disease. - Famotidine for heartburn. - Stool softeners for constipation. - Multivitamins and B12 supplementation. - calcium for osteoporosis. Patient Instructions - Schedule and attend a mammogram. - Follow up with a colonoscopy appointment. - Consider Pap smear if due, potentially schedule [employer] visit. - Receive tetanus vaccine today; consider scheduling or obtaining another at a pharmacy if missed. - follow up with Gastroenterology Return in 2-year-old physical exam Orders: Orders TDaP Immunization Today Z23 - Encounter for immunization Influenza [id number] Immunization Today Z23 - Encounter for immunization Medications: Refilled calcium carbonate-vitamin D3 500 mg-5 mcg (200 unit) (Oysco 500/D) 1 tab PO DAILY 90 tabs 2RF 90 days M81.0 - Age-related osteoporosis without current pathological fracture
== END 2025-01-24 15:08 | disposition home or self-care (01) ==
LOC: HO.HMCC 14:08
PROVIDERS: PCP Internal Medicine; Visit Provider Internal Medicine
DX: Z00.00 Encounter for general adult medical examination without abnormal findings (principal); K74.3 Primary biliary cirrhosis; M81.0 Age-related osteoporosis without current pathological fracture; Z91.09 Other allergy status, other than to drugs and biological substances; Z23 Encounter for immunization

== ENCOUNTER 2025-02-07 09:42 | Outpatient (REF) | payer OTHER, SELFPAY ==
[2025-02-07 13:14] LABS: MANUAL DIFF FLAG NO
[2025-02-07 13:40] LABS: Hematocrit 40.9 % (37.0-47.0); Hemoglobin 13.1 g/dl (12.0-16.0); Imm Gran Abs Auto 0.01 X10*3/uL (0.00-0.03); Imm Gran Pct Auto 0.2 % (0.0-0.4); Lymphocytes Absolute Auto 1.6 X10*3/uL (1.2-4.9); Mean Corpuscular HGB Conc 32.0 g/dl (31.0-35.0); Mean Corpuscular Hemoglobin 32.0 pg (27.0-33.0); Mean Corpuscular Volume 100.0 fL (80.0-98.0); NRBC Abs Auto 0.000 X10*3/uL (0.0-0.012); NRBC Pct Auto 0.0 /100WBC (0.0-0.2); Platelet Count 209 X10*3/uL (160-400); Red Blood Count 4.09 X10*6/uL (4.20-5.50); White Blood Count 6.2 X10*3/uL (4.8-10.8)
[2025-02-07 14:35] LABS: Vitamin B12 < 148 pg/mL (200-900)
[2025-02-07 15:13] LABS: Alanine Aminotransferase 18 U/L (0-31); Albumin Level 3.9 g/dL (3.5-5.0); Alkaline Phosphatase 241 U/L (39-117); Anion Gap 9 (12-20); Aspartate Amino Transferase 42 U/L (5-31); Blood Urea Nitrogen 7 mg/dL (9-16); Calcium 8.9 mg/dL (8.4-10.2); Carbon Dioxide 28 mmol/L (22-29); Chloride 110 mmol/L (96-108); Cholesterol 213 mg/dL (<200); Estimated Glomerular Filt Rate > 60; Potassium 3.7 mmol/L (3.3-5.1); Sodium 143 mmol/L (135-145); Total Protein 7.5 g/dL (6.5-8.0); Triglycerides 100 mg/dL (<150)
[2025-02-07 15:27] LABS: HDL Cholesterol 90 mg/dL (>40)
[2025-02-11 12:48] LABS: Vitamin D 25-OH, D2 <4 ng/mL; Vitamin D 25-OH, D3 33 ng/mL; Vitamin D 25-OH, Total 33 ng/mL (30-100)
== END 2025-02-07 09:43 | disposition home or self-care (01) ==
LOC: HO.HMGCLDS 09:42
PROVIDERS: PCP Internal Medicine; Visit Provider Internal Medicine
DX: Z00.01 Encounter for general adult medical examination with abnormal findings (principal); M81.0 Age-related osteoporosis without current pathological fracture; K74.3 Primary biliary cirrhosis; Z91.09 Other allergy status, other than to drugs and biological substances; Z72.0 Tobacco use
CPT/HCPCS: 36415; 80053; 80061; 82306; 82607; 84443; 85025